=== PATIENT | male | born 1950 | race Caucasian/White ===

== ENCOUNTER 2017-09-27 07:29 | Day surgery (SDC) | payer OTHER ==
[2017-09-27] MEDS ORDERED: Ringers Lactate 1,000 ML IV ONE (08:00)
[2017-09-27] MEDS ORDERED: LIDOCAINE 1% MPF 5 ML VIAL ONE (10:05)
[2017-09-27] MEDS ORDERED: PROPOFOL 200 MG/20 ML VIAL IV ONE (10:05)
--- NOTE | 2017-09-27 10:59 | ENDO RPT ---
[address], [address] COLONOSCOPY PROCEDURE REPORT EXAM DATE: 09/27/2017 PATIENT NAME: Manuel Combs MR #: [id number] BIRTHDATE: 1950 ATTENDING: Manuel Barrientos Dr STATUS: outpatient MANAGER ADULT: Ca Logan RN and Hellen Brenner INDICATIONS: The patient is a 67 yr old Male here for a colonoscopy due to colon cancer screening PROCEDURE PERFORMED: Colonoscopy with snare polypectomy MEDICATIONS: Per Anesthesia. ESTIMATED BLOOD LOSS: None CONSENT: The patient understands the risks and benefits of the procedure and understands that these risks include, but are not limited to: sedation, allergic reaction, infection, perforation and/or bleeding. Alternative means of evaluation and treatment include, among others: physical exam, x-rays, and/or surgical intervention. The patient elects to proceed with this endoscopic procedure. DESCRIPTION OF PROCEDURE: During intra-op preparation period all mechanical medical equipment was checked for proper function. Hand hygiene and appropriate measures for infection prevention was taken. Procedure, possible complications, alternatives including, but not limited to possibility of bleeding, perforation, tear, infection, sepsis, need for surgery, need for blood transfusion, were explained to the patient. After the risks, benefits and alternatives of the procedure were thoroughly explained, Informed consent was verified, confirmed and timeout was successfully executed by the treatment team. The patient was placed in the left lateral position. A digital rectal exam was performed and revealed no abnormalities of the rectum. After appropriate level of anesthesia, the scope was passed. The EC-[id number] ([id number]) endoscope was introduced through the anus and advanced to the terminal ileum which was intubated for a short distance. The quality of the prep was good. The instrument was then slowly withdrawn as the colon was fully examined. Scope withdrawal time was 12 minutes. COLON FINDINGS: A sessile polyp measuring 7 mm in size was found in the ascending colon. A polypectomy was performed using snare cautery. Five pedunculated polyps measuring 1-2 cm in size were found in the descending colon. A pedunculated polyp measuring 2 cm in size was found in the sigmoid colon. A sessile polyp measuring 7 mm in size was found in the sigmoid colon. Two sessile polyps measuring 6-7 mm in size were found in the rectum. A polypectomy was performed using snare cautery. Enlarged / protruding appendix. Small internal hemorrhoids were found. Retroflexed views revealed small hemorrhoids. The scope was then completely withdrawn from the patient and the procedure terminated. ADVERSE EVENTS: There were no complications. IMPRESSIONS: 1. 7 mm sessile polyp in the ascending colon; polypectomy was performed using snare cautery 2. Five pedunculated polyps measuring 1-2 cm in size in the descending colon 3. 2.5 cm pedunculated polyp in the sigmoid colon 4. 7 mm sessile polyp in the sigmoid colon cautery 6. Enlarged / protruding appendix 7. Small internal hemorrhoids 8. Intubation to terminal ileum RECOMMENDATIONS: 1. await biopsy results 2. avoid NSAIDS for [address] abdomen/pelvis/chest 4. check CEA level Manuel Barrientos Dr eSigned: Manuel Barrientos Dr 09/27/2017 10:59 AM cc: Dylon Martinez and Maury Villafuerte CPT CODES: ICD9 CODES: 1. 211.3 Benign neoplasm of colon 2. 569.0 Anal and rectal polyp PATIENT NAME: Lauryn Manuel BarnardTeresa MR#: [id number]
[2017-09-27 11:08] VITALS: TEMP 96.5
[2017-09-27 11:11] VITALS: O2SAT 100
[2017-09-27 11:12] VITALS: BP 100/84
[2017-09-27 11:43] LABS: Carcinoembryonic Antigen 3.2 ng/mL (0-5.0)
--- NOTE | 2017-09-27 13:51 | RAD REPORT ---
EXAM DESCRIPTION: CT - Chest Abdomen Pelvis W Cont - 09/27/2017 1:08 pm CLINICAL HISTORY: Abnormal colonoscopy, multiple large polyps removed COMPARISON: None. TECHNIQUE: Following dynamic enhancement using 100 milliliters nonionic IV contrast, axial imaging o f the chest, abdomen and pelvis was performed. Biphasic technique was utilized through the abdomen. Oral contrast was administered. All CT scans are performed using dose optimization technique as appropriate and may include automated exposure control or mA/KV adjustment according to patient size. FINDINGS: In the lateral right lower lobe (image 44/89) there is a 4 millimeter noncalcified pulmona ry nodule. Lung francois are otherwise clear of mass or nodularity. No acute infiltrates seen. No pleur al effusion, pleural thickening or pneumothorax. No significant aortic or pulmonary arterial tree fin ding. Mediastinal and hilar regions show no mass or abnormal lymphadenopathy. No chest wall mass or a xillary lymphadenopathy. Thoracic spine bony degenerative changes are present. No pathologic process identifiable. Liver size is normal. No focal liver lesions. No splenomegaly or focal splenic finding. Body and tail of the pancreas are unremarkable. Along the right lateral margin of the uncinate -head junction of t he pancreas there is a 3.3 centimeter cystic or low-density mass. Two adjacent 13-15 millimeter lymph nodes are present. Patient has an air-filled 3.4 centimeter duodenal diverticulum. The pancreatic cy stic mass is not believed to be a fluid-filled diverticulum. No edema or stranding in the adjacent fa t. No biliary tree dilatation. Gallbladder is abnormal in appearance with thickened wall and areas of gallbladder wall edema. Gallstones can be occult. No free fluid seen. Symmetric renal function is seen with no mass or hydronephrosis. No adrenal abnormalities. No pyelone phritis or acute renal parenchymal process. A 4.8 centimeter cyst is present adjacent to the lateral margin of the left kidney. This is probably renal in origin. This is not regarded as a significant fi nding in and of itself. Multiple additional 12 mm or less exophytic left renal cysts are present. No gastric wall thickening or mass. No acute small bowel finding. Oral contrast has reached the dista l rectum. Rectal galan are more difficult to assess due to tortuosity. There is focal wall thickening near the rectosigmoid junction, possibly site of prior polypectomy. Focal nodularity near the descen ding sigmoid junction is possibly another site of polypectomy. Nodularity at the splenic flexure is a lso present. Prominent ileocecal valve noted. No free air, free fluid or focal inflammatory stranding. No acute or destructive bony process. Vascular calcifications are present with no acute vascular finding. IMPRESSION: Multiple areas of polyposis or nodularity are seen in the colon as detailed. Assessment by CT is limited due to incomplete distention. At the areas of suspected nodularity or polyposis there is no extension into the adjacent fatty tissu e. No abnormal abdominal or pelvic lymphadenopathy related to the colon. Approximately 3.3 centimeter cystic mass along the lateral margin of the pancreatic head -uncinate ju nction. Two small adjacent lymph nodes are present. Gallbladder is abnormal with wall thickening.Find ing is concerning for a primary pancreatic malignancy. Biliary tree malignancy cannot be excluded giv en the concurrent gallbladder abnormality. Single nonspecific noncalcified right lower lobe nodule 4 mm in size. No suspicious CT chest finding.
== END 2017-09-27 13:07 | disposition home or self-care (01) ==
LOC: ENDO 07:29
PROVIDERS: ATTEND Internal Medicine Gastroenterology
PROC: 0DBN8ZZ Excision of Sigmoid Colon, Via Natural or Artificial Opening Endoscopic (ICD-10-PCS; 2017-09-27)
PROC: 0DBP8ZX Excision of Rectum, Via Natural or Artificial Opening Endoscopic, Diagnostic (ICD-10-PCS; 2017-09-27)
PROC: 0DBM8ZZ Excision of Descending Colon, Via Natural or Artificial Opening Endoscopic (ICD-10-PCS; 2017-09-27)
PROC: 0DBK8ZX Excision of Ascending Colon, Via Natural or Artificial Opening Endoscopic, Diagnostic (ICD-10-PCS; principal; 2017-09-27 10:15)
DX: Z12.11 Encounter for screening for malignant neoplasm of colon (principal); I10 Essential (primary) hypertension; Z86.73 Personal history of transient ischemic attack (TIA), and cerebral infarction without residual deficits; F17.210 Nicotine dependence, cigarettes, uncomplicated; D12.2 Benign neoplasm of ascending colon; D12.8 Benign neoplasm of rectum; K64.8 Other hemorrhoids
CPT/HCPCS: 36415; 45385; 71260; 74177; 82378; 82565; 88305; Q9967

== ENCOUNTER 2017-12-08 16:43 | Inpatient (IN) | payer OTHER ==
--- NOTE | 2017-12-08 17:42 | RAD REPORT ---
EXAM DESCRIPTION: CT - Head Brain Wo Cont - 12/08/2017 5:28 pm CLINICAL HISTORY: Left hand numbness COMPARISON: None. TECHNIQUE: Computed axial tomography of the head was obtained. IV contrast was not requested. All CT scans are performed using dose optimization technique as appropriate and may include automated exposure control or mA/KV adjustment according to patient size. FINDINGS: An intracranial bleed is not seen . The ventricles are normal in caliber. No extra-axial fluid collection is noted. 5 centimeter low-density area within the left occipital lobe has the appearance of cystic encephaloma lacia likely secondary to an old infarct. A 3 centimeter low-density areas present within the right occipital lobe. Fluid within the sinuses/ mastoids is not seen. IMPRESSION: 3 centimeter low-density area within the right occipital lobe likely represents an infa rct. It may be acute/subacute. MRI is recommended
[2017-12-08 17:59] LABS: Absolute Lymphocytes (CBC) 1.2 K/uL (0.7-4.9); Absolute Monocytes 1.1 K/uL (0.1-1.3); Absolute Neutrophil 11.4 K/uL (1.8-8.0); Basophils % 0.5 % (0-1.3); Eosinophils % 0.9 % (0-4.4); Hematocrit 30.3 % (39.6-49.0); Lymphocytes % 8.4 % (15.3-44.8); MCH 29.8 pg (27.0-35.0); MCV 88.1 fL (80-100); MPV 7.3 fL (7.6-11.3); RBC Red Blood Cell Count 3.44 M/uL (4.33-5.43)
[2017-12-08 18:22] LABS: Protime INR 1.19
--- NOTE | 2017-12-08 18:34 | RAD REPORT ---
EXAM DESCRIPTION: Shy Single View12/08/2017 6:03 pm CLINICAL HISTORY: Chest pain COMPARISON: none FINDINGS: The lungs appear clear of acute infiltrate. The heart is normal size IMPRESSION: No acute abnormalities displayed
[2017-12-08] MEDS ORDERED: ASPIRIN 81 MG CHEWABLE TABLET ONE (18:54)
[2017-12-08 18:57] LABS: ALT/SGPT 14 U/L (12-78); AST/SGOT 15 U/L (15-37); Albumin 2.3 g/dL (3.4-5.0); Alkaline Phosphatase 67 U/L (45-117); BUN Blood Urea Nitrogen 17 mg/dL (7-18); Bicarbonate 31 mmol/L (21-32); Bilirubin Direct 0.1 mg/dL (0-0.2); Bilirubin Total 0.3 mg/dL (0.2-1.0); CKMB Creatine Kinase MB < 1.0 ng/mL (0.3-3.6); Creatine Phosphokinase 42 U/L (39-308); Glucose Level 111 mg/dL (74-106); Magnesium 2.3 mg/dL (1.8-2.4); NT PRO-BNP 106 pg/mL (<125); Protein, Total 6.6 g/dL (6.4-8.2); Sodium Level 143 mmol/L (136-145); Troponin (Emerg Dept Use Only) < 0.02 ng/mL (0.0-0.045)
[2017-12-08 18:58] LABS: Potassium 2.7 mmol/L (3.5-5.1)
[2017-12-08] MEDS ORDERED: KCL 20 MEQ/100 mL IVPB 20 MEQ/100 ML BAG IV ONE (19:05)
[2017-12-08] MEDS ORDERED: POTASSIUM 25 MEQ EFFERV TAB ONE (19:05)
[2017-12-08] MEDS ORDERED: NA CHLORIDE 0.9% 250 ML ONE (19:07)
--- NOTE | 2017-12-08 20:06 | EDPHYS ---
Physician Documentation [facility] Name: Manuel Combs Age: 67 yrs Sex: Male : 1950 Arrival Date: 12/08/2017 Time: 16:44 Bed 28 Private MD: Dylon Martinez ED Physician Jono Montelongo HPI: 12/08 17:30 This 67 yrs old Male presents to ER via EMS with complaints of Weakness. cp 17:30 The patient presents to the emergency department with weakness of the entire body, cp generalized weakness. 17:30 Onset: The symptoms/episode began/occurred gradually. cp 17:30 Context: numbness of left hand and arm started yesterday. Associated signs and cp symptoms: Pertinent negatives: altered mental status, chills, fever, headache, nausea, neck stiffness, syncope, weakness. Severity of symptoms: in the emergency department the symptoms are unchanged despite home interventions. Patient's baseline: Neuro: alert and fully oriented, Motor: right-sided weakness, Ambulation: walks with assist only, crutch, Speech: normal, The patient has a previous history of CVA. Current symptoms: numbness of left hand and left arm. Historical: - Allergies: 16:51 No Known Allergies; mg2 - Home Meds: 18:11 atorvastatin 40 mg oral tab 1 tab once daily [Active]; amlodipine 10 mg tab 1 tab once mg2 daily [Active]; pantoprazole 40 mg oral TbEC 1 tab once daily [Active]; gabapentin 300 mg oral cap 1 cap 3 times per day [Active]; losartan 100 mg oral tab 1 tab once daily [Active]; - PMHx: 16:51 GERD; Hypertension; Hyperlipidemia; neuropathy; stroke last 2016; mg2 - PSHx: 16:51 mass removal from the pancreas- november 25, 2017; mg2 - Immunization history:: Flu vaccine is not up to date. - Social history:: Smoking status: Patient uses tobacco products, smokes one pack cigarettes per day. Patient/guardian denies using alcohol, street drugs, IV drugs. - Ebola Screening: : No symptoms or risks identified at this time. ROS: 17:35 Constitutional: Negative for body aches, chills, fever, poor PO intake. cp 17:35 Eyes: Negative for injury, pain, redness, and discharge. cp 17:35 ENT: Negative for drainage from ear(s), ear pain, sore throat, difficulty swallowing, difficulty handling secretions. 17:35 Cardiovascular: Negative for chest pain, edema, palpitations. 17:35 Respiratory: Negative for cough, shortness of breath, wheezing. 17:35 Abdomen/GI: Negative for abdominal pain, nausea, vomiting, and diarrhea, black/tarry stool, rectal bleeding. 17:35 Back: Negative for pain at rest, pain with movement, radiated pain. 17:35 : Negative for urinary symptoms. 17:35 MS/extremity: Positive for paresthesias, of the left hand and left arm, Negative for injury or acute deformity, decreased range of motion. 17:35 Skin: Negative for cellulitis, rash. 17:35 Neuro: Positive for general weakness, Negative for altered mental status, dizziness, headache, syncope, near syncope, visual changes. 17:35 All other systems are negative. Exam: 17:10 ECG was reviewed by the Attending Physician. cp 17:40 Constitutional: The patient appears in no acute distress, alert, awake, cp non-diaphoretic, non-toxic, well developed, well nourished. 17:40 Head/Face: Normocephalic, atraumatic. cp 17:40 ENT: Nares patent. No nasal discharge, no septal abnormalities noted. Tympanic membranes are normal and external auditory canals are clear. Oropharynx with no redness, swelling, or masses, exudates, or evidence of obstruction, uvula midline. Mucous membranes moist. Neck: Trachea midline, no thyromegaly or masses palpated, and no cervical lymphadenopathy. Supple, full range of motion without nuchal rigidity, or vertebral point tenderness. No Meningismus. Chest/axilla: Normal chest wall appearance and motion. Nontender with no deformity. No lesions are appreciated. 17:40 Eyes: Periorbital structures: appear normal, Pupils: equal, round, and reactive to light and accomodation, Extraocular movements: intact throughout, Conjunctiva: normal, no exudate, no injection, Sclera: no appreciated abnormality, Lids and lashes: appear normal, bilaterally. 17:40 Cardiovascular: Rate: normal, Rhythm: regular, Pulses: Pulses are 2+ in right radial artery and left radial artery. Edema: is not appreciated, JVD: is not appreciated. 17:40 Respiratory: the patient does not display signs of respiratory distress, Respirations: normal, no use of accessory muscles, no retractions, no splinting, no tachypnea, labored breathing, is not present. 17:40 Abdomen/GI: Inspection: scar(s), surgical scar appears w/o erythema or discharge, no signs of cellulitis noted, Bowel sounds: active, all quadrants, Palpation: soft, in all quadrants, nontender, in all quadrants. 17:40 Back: pain, is absent, ROM is normal. 17:40 Neuro: Orientation: to person, place \T\ time. Mentation: lucid, able to follow commands, Cerebellar function: Romberg testing is negative, normal finger to nose testing, Motor: moves all fours, general weakness w/o focal deficits, Sensation: tingling, that is mild, of the left hand and left arm. Vital Signs: 16:51 BP 146 / 71; Pulse 91; Resp 18; Temp 98.5; Pulse Ox 98% on R/A; Weight 83.46 kg; Height mg2 6 ft. 1 in. (185.42 cm); Pain 0/10; 18:07 BP 122 / 97; Pulse 78; Resp 18; Pulse Ox 95% on R/A; Pain 0/10; mg2 18:24 BP 146 / 93 Supine; mg2 18:24 BP 149 / 62 Sitting; mg2 18:24 BP 128 / 63 Standing; mg2 19:46 BP 148 / 55; Pulse 91; Resp 18; Pulse Ox 100% on R/A; Pain 0/10; mg2 22:30 BP 136 / 80; Pulse 90; Resp 18; Pulse Ox 100% on R/A; Pain 0/10; mg2 16:51 Body Mass Index 24.28 (83.46 kg, 185.42 cm) mg2 NIH Stroke Scale Scores: 17:40 NIHSS Score: 1 cp Tresa Coma Score: 17:40 Eye Response: spontaneous(4). Verbal Response: oriented(5). Motor Response: obeys cp commands(6). Total: 15. MDM: 17:02 Patient medically screened. cp 17:20 ED course: Patient is not candidate for tpa due to onset of symptoms occurring cp yesterday. 19:38 Data reviewed: vital signs, nurses notes, lab test result(s), EKG, radiologic studies, cp CT scan. 19:38 Test interpretation: by ED physician or midlevel provider: ECG. Counseling: I had a cp detailed discussion with the patient and/or guardian regarding: the historical points, exam findings, and any diagnostic results supporting the discharge/admit diagnosis, lab results, radiology results, the need for further work-up and treatment in the hospital. 19:42 Physician consultation: Christi Monge MD was contacted at 19:42, regarding admission, cp to the medical/surgical unit. patient's condition, and will see patient in ED, shortly. 12/08 17:11 Order name: Basic Metabolic Panel; Complete Time: 19:19 cp 12/08 19:20 Interpretation: Normal except: K 2.7; GLUC 111; GFR 84. cp 12/08 17:11 Order name: CBC with Diff; Complete Time: 18:20 cp 12/08 18:20 Interpretation: Normal except: WBC 13.8; RBC 3.44; HGB 10.3; HCT 30.3; PLT 585; RDW cp 15.8; MPV 7.3; HALEY% 82.2; LYM% 8.4; NEUT A 11.4. 12/08 17:11 Order name: Ckmb; Complete Time: 19:19 cp 12/08 17:11 Order name: CPK; Complete Time: 19:19 cp 12/08 17:11 Order name: LFT's; Complete Time: 19:19 cp 12/08 19:20 Interpretation: Normal except: ALB 2.3; GLOB 4.3; A/G 0.5. cp 12/08 17:11 Order name: Magnesium; Complete Time: 19:19 cp 12/08 17:11 Order name: NT PRO-BNP; Complete Time: 19:19 cp 12/08 17:11 Order name: PT-INR; Complete Time: 19:19 cp 12/08 17:11 Order name: Ptt, Activated; Complete Time: 19:19 cp 12/08 17:11 Order name: Troponin (emerg Dept Use Only); Complete Time: 19:19 cp 12/08 17:11 Order name: XRAY Chest (1 view); Complete Time: 19:19 cp 12/08 17:11 Order name: Blood Culture Adult (2) cp 12/08 19:22 Order name: Urine Microscopic Only; Complete Time: 22:30 cp 12/08 22:30 Interpretation: Normal except: AMORPH 3+. cp 12/08 19:59 Order name: Urine Dipstick--Ancillary (enter results); Complete Time: 22:30 rg2 12/08 22:31 Interpretation: Reviewed. cp 12/08 17:11 Order name: Orthostatics; Complete Time: 18:24 cp 12/08 17:11 Order name: EKG; Complete Time: 17:12 cp 12/08 17:11 Order name: Cardiac monitoring; Complete Time: 17:47 cp 12/08 17:11 Order name: EKG - Nurse/Tech; Complete Time: 17:47 cp 12/08 17:11 Order name: IV Saline Lock; Complete Time: 17:47 cp 12/08 17:11 Order name: Labs collected and sent; Complete Time: 17:47 cp 12/08 17:11 Order name: O2 Per Protocol; Complete Time: 17:47 cp 12/08 17:11 Order name: O2 Sat Monitoring; Complete Time: 17:47 cp 12/08 17:11 Order name: Urine Dipstick-Ancillary (obtain specimen); Complete Time: 19:46 cp 12/08 17:11 Order name: CT Head Brain wo Cont; Complete Time: 18:20 cp 12/08 19:22 Order name: Cath; Complete Time: 19:46 cp EC:10 Rate is 91 beats/min. Rhythm is regular. LA interval is normal. QRS interval is normal. cp QT interval is normal. Interpreted by me. Reviewed by me. Administered Medications: 18:54 Drug: Aspirin Chewable Tablet 81 mg Route: PO; mg2 22:00 Follow up: Response: No adverse reaction mg2 22:01 Follow up: Response: No adverse reaction mg2 19:08 Drug: Potassium Effervescent Tablet 50 mEq Route: PO; mg2 21:59 Follow up: Response: No adverse reaction mg2 19:09 Drug: Potassium Chloride 20 mEq Route: IV; Rate: calculated rate; Site: right mg2 antecubital; 22:00 Follow up: Response: No adverse reaction; IV Status: Completed infusion mg2 20:26 Drug: foLIC Acid 1 mg Route: IVPB; Site: right antecubital; mg2 21:59 Follow up: Response: No adverse reaction; IV Status: Completed infusion mg2 Disposition: 12/09 07:30 Co-signature as Attending Physician, Jono Montelongo MD I agree with the assessment and kdr plan of care. Disposition: 12/08/17 20:05 Hospitalization ordered by Christi Monge for Observation. Preliminary diagnosis are Cerebral infarction, Paresthesia of skin, Weakness - General, Hypokalemia. - Bed requested for Telemetry/MedSurg (observation). - Status is Observation. mg2 - Condition is Stable. - Problem is new. - Symptoms have improved. UTI on Admission? No NIH Stroke Scale - NIH Stroke Score Date: 12/08/2017 Time: 17:40 Total Score = 1 1a. Level of Consciousness (LOC) - 0(Alert) 1b. Level of Consciousness (LOC) (Year \T\ Age) - 0(Both) 1c. LOC Commands (Open \T\ Closes Eyes/Meat Cutting Block Repairer) - 0(Both) 2. Best Gaze (Lateral Gaze Paresis) - 0(Normal) 3. Visual Field Loss - 0(No visual loss) 4. Facial Palsy - 0(Normal) 5a. Left Arm: Motor (10-second hold) - 0(No drift) 5b. Right Arm: Motor (10-second hold) - 0(No drift) 6a. Left Leg: Motor (5-second hold - always test supine) - 0(No drift) 6b. Right Leg: Motor (5-second hold - always test supine) - 0(No drift) 7. Limb Ataxia (finger/nose \T\ heel/bustillo - test with eyes open) - 0(Absent) 8. Sensory Loss (pinprick arms/legs/face) - 1(Mild to moderate loss) 9. Best Language: Aphasia (description/naming/reading) - 0(No aphasia) 10. Dysarthria (speech clarity - read or repeat words) - 0(Normal) 11. Extinction and Inattention (visual/tactile/auditory/spatial/personal) - 0(No abnormality) Initials: cp Signatures: Dispatcher [employer] Kim Galvan RN RN kl Rittger, Kevin, MD MD kdr Page, Corey, PA PA cp Agusto Thompson RN RN mg2 Corrections: (The following items were deleted from the chart) 12/08 20:06 20:05 Hospitalization Ordered by Christi Monge MD for Observation. Preliminary cp diagnosis is Cerebral infarction; Paresthesia of skin. Bed requested for Telemetry/MedSurg (observation). Status is Observation. Condition is Stable. Problem is new. Symptoms have improved. UTI on Admission? No. cp 20:23 20:06 12/08/2017 20:05 Hospitalization Ordered by Christi Monge MD for cp Observation. Preliminary diagnosis is Cerebral infarction; Paresthesia of skin; Weakness - General. Bed requested for Telemetry/MedSurg (observation). Status is Observation. Condition is Stable. Problem is new. Symptoms have improved. UTI on Admission? No. cp 21:31 20:23 12/08/2017 20:05 Hospitalization Ordered by Christi Monge MD for kl Observation. Preliminary diagnosis is Cerebral infarction; Paresthesia of skin; Weakness - General; Hypokalemia. Bed requested for Telemetry/MedSurg (observation). Status is Observation. Condition is Stable. Problem is new. Symptoms have improved. UTI on Admission? No. cp 21:34 21:31 12/08/2017 20:05 Hospitalization Ordered by Christi Monge MD for kl Observation. Preliminary diagnosis is Cerebral infarction; Paresthesia of skin; Weakness - General; Hypokalemia. Bed requested for Telemetry/MedSurg (observation). Status is Observation. Condition is Stable. Problem is new. Symptoms have improved. UTI on Admission? No. kl 22:33 21:34 12/08/2017 20:05 Hospitalization Ordered by Christi Monge MD for [facility] Observation. Preliminary diagnosis is Cerebral infarction; Paresthesia of skin; Weakness - General; Hypokalemia. Bed requested for Telemetry/MedSurg (observation). Status is Observation. Condition is Stable. Problem is new. Symptoms have improved. UTI on Admission? No.
--- NOTE | 2017-12-08 20:06 | ER ---
Nurse's Notes [facility] Name: Manuel Combs Age: 67 yrs Sex: Male : 1950 Arrival Date: 12/08/2017 Time: 16:44 Bed 28 Private MD: Dylon Martinez Diagnosis: Cerebral infarction;Paresthesia of skin;Weakness-General;Hypokalemia Presentation: 12/08 16:46 Presenting complaint: EMS states: patient has been having general body weakness since mg2 yesterday, numbness on his left hand \T\ 0500 yesterday morning. BGL- 156, Afib on EKG Strip, and had his pancreatic mass removed last November 25, 2017. no facial droop or slurred speech noted. Transition of care: patient was not received from another setting of care. Onset of symptoms was December 07, 2017. Risk Assessment: Do you want to hurt yourself or someone else? Patient reports no desire to harm self or others. Initial Sepsis Screen: Does the patient have a suspected source of infection? No. Patient's initial sepsis screen is negative. Care prior to arrival: IV fluid. 16:46 Method Of Arrival: EMS mg2 16:46 Acuity: KARSON 2 mg2 18:08 Initial Sepsis Screen: Does the patient meet any 2 criteria? No. Patient's initial mg2 sepsis screen is negative. Historical: - Allergies: 16:51 No Known Allergies; mg2 - Home Meds: 18:11 atorvastatin 40 mg oral tab 1 tab once daily [Active]; amlodipine 10 mg tab 1 tab once mg2 daily [Active]; pantoprazole 40 mg oral TbEC 1 tab once daily [Active]; gabapentin 300 mg oral cap 1 cap 3 times per day [Active]; losartan 100 mg oral tab 1 tab once daily [Active]; - PMHx: 16:51 GERD; Hypertension; Hyperlipidemia; neuropathy; stroke last 2016; mg2 - PSHx: 16:51 mass removal from the pancreas- november 25, 2017; mg2 - Immunization history:: Flu vaccine is not up to date. - Social history:: Smoking status: Patient uses tobacco products, smokes one pack cigarettes per day. Patient/guardian denies using alcohol, street drugs, IV drugs. - Ebola Screening: : No symptoms or risks identified at this time. Screenin:47 Abuse screen: Denies threats or abuse. Denies injuries from another. Nutritional mg2 screening: No deficits noted. Tuberculosis screening: No symptoms or risk factors identified. Fall Risk IV access (20 points). Ambulatory Aid- Crutches/Cane/Walker (15 pts). Gait- Weak (10 pts.). Assessment: 17:48 General: Appears in no apparent distress. comfortable, Behavior is calm, cooperative. mg2 Pain: Denies pain. Neuro: Level of Consciousness is awake, alert, obeys commands, Oriented to person, place, time, situation. Cardiovascular: Capillary refill < 3 seconds Patient's skin is warm and dry. Respiratory: Airway is patent Respiratory effort is even, unlabored, Respiratory pattern is regular, symmetrical. GI: No signs and/or symptoms were reported involving the gastrointestinal system. : No signs and/or symptoms were reported regarding the genitourinary system. EENT: No signs and/or symptoms were reported regarding the EENT system. Derm: Skin is pink, warm \T\ dry. normal. Musculoskeletal: Circulation, motion, and sensation intact. 18:08 Reassessment: Patient appears in no apparent distress at this time. Patient and/or mg2 family updated on plan of care and expected duration. Pain level reassessed. Patient is alert, oriented x 3, equal unlabored respirations, skin warm/dry/pink. 19:30 Reassessment: Patient appears in no apparent distress at this time. Patient and/or mg2 family updated on plan of care and expected duration. Pain level reassessed. Patient is alert, oriented x 3, equal unlabored respirations, skin warm/dry/pink. Vital Signs: 16:51 BP 146 / 71; Pulse 91; Resp 18; Temp 98.5; Pulse Ox 98% on R/A; Weight 83.46 kg; Height mg2 6 ft. 1 in. (185.42 cm); Pain 0/10; 18:07 BP 122 / 97; Pulse 78; Resp 18; Pulse Ox 95% on R/A; Pain 0/10; mg2 18:24 BP 146 / 93 Supine; mg2 18:24 BP 149 / 62 Sitting; mg2 18:24 BP 128 / 63 Standing; mg2 19:46 BP 148 / 55; Pulse 91; Resp 18; Pulse Ox 100% on R/A; Pain 0/10; mg2 22:30 BP 136 / 80; Pulse 90; Resp 18; Pulse Ox 100% on R/A; Pain 0/10; mg2 16:51 Body Mass Index 24.28 (83.46 kg, 185.42 cm) mg2 Tresa Coma Score: 17:40 Eye Response: spontaneous(4). Verbal Response: oriented(5). Motor Response: obeys cp commands(6). Total: 15. NIH Stroke Scale Scores: 17:40 NIHSS Score: 1 cp ED Course: 16:44 Patient arrived in ED. rg4 16:44 Dylon Martinez MD is Private Physician. rg4 16:46 Agusto Thompson, DARCI is Primary Nurse. mg2 16:49 Triage completed. mg2 16:52 Arm band placed on. mg2 17:02 Armand Felipe PA is PHCP. cp 17:02 Jono Montelongo MD is Attending Physician. cp 17:[address] vr 17:20 EKG done, by photo lab technician. dt2 17:28 CT Head Brain wo Cont In Process Unspecified. EDMS 17:49 No provider procedures requiring assistance completed. Maintain EMS IV. Dressing mg2 intact. Good blood return noted. Site clean \T\ dry. Gauge \T\ site: 20 \T\ RAC. 17:59 X-ray completed. Portable x-ray completed in exam room. jr1 18:04 XRAY Chest (1 view) In Process Unspecified. EDMS 18:08 Patient has correct armband on for positive identification. Bed in low position. Call mg2 light in reach. Side rails up X 1. Pulse ox on. NIBP on. Door closed. Warm blanket given. 20:04 Christi Monge MD is Hospitalizing Provider. cp 22:31 Patient admitted, IV remains in place. mg2 Administered Medications: 18:54 Drug: Aspirin Chewable Tablet 81 mg Route: PO; mg2 22:00 Follow up: Response: No adverse reaction mg2 22:01 Follow up: Response: No adverse reaction mg2 19:08 Drug: Potassium Effervescent Tablet 50 mEq Route: PO; mg2 21:59 Follow up: Response: No adverse reaction mg2 19:09 Drug: Potassium Chloride 20 mEq Route: IV; Rate: calculated rate; Site: right mg2 antecubital; 22:00 Follow up: Response: No adverse reaction; IV Status: Completed infusion mg2 20:26 Drug: foLIC Acid 1 mg Route: IVPB; Site: right antecubital; mg2 21:59 Follow up: Response: No adverse reaction; IV Status: Completed infusion mg2 Outcome: 20:05 Decision to Hospitalize by Provider. cp 22:32 Admitted to Med/surg accompanied by tech, via wheelchair, room 230, with chart, Report mg2 called to DARCI Oliver 22:32 Condition: stable 22:32 Instructed on the need for admit, Demonstrated understanding of instructions. 22:33 Patient left the ED. mg2 NIH Stroke Scale - NIH Stroke Score Date: 12/08/2017 Time: 17:40 Total Score = 1 1a. Level of Consciousness (LOC) - 0(Alert) 1b. Level of Consciousness (LOC) (Year \T\ Age) - 0(Both) 1c. LOC Commands (Open \T\ Closes Eyes/Fermenting Cellar Dropper) - 0(Both) 2. Best Gaze (Lateral Gaze Paresis) - 0(Normal) 3. Visual Field Loss - 0(No visual loss) 4. Facial Palsy - 0(Normal) 5a. Left Arm: Motor (10-second hold) - 0(No drift) 5b. Right Arm: Motor (10-second hold) - 0(No drift) 6a. Left Leg: Motor (5-second hold - always test supine) - 0(No drift) 6b. Right Leg: Motor (5-second hold - always test supine) - 0(No drift) 7. Limb Ataxia (finger/nose \T\ heel/bustillo - test with eyes open) - 0(Absent) 8. Sensory Loss (pinprick arms/legs/face) - 1(Mild to moderate loss) 9. Best Language: Aphasia (description/naming/reading) - 0(No aphasia) 10. Dysarthria (speech clarity - read or repeat words) - 0(Normal) 11. Extinction and Inattention (visual/tactile/auditory/spatial/personal) - 0(No abnormality) Initials: cp Signatures: Dispatcher [employer] EDMS Lu Foster Victoria vr Page, Corey, PA PA cp Garcia, Rubi rg4 Agusto Thompson, DARCI RN mg2 Chloe Rodriguez2 Corrections: (The following items were deleted from the chart) 16:53 16:46 Presenting complaint: EMS states: patient has been having general body mg2 weakness since yesterday, numbness on his left hand \T\ 0500 yesterday morning. mg2 18:09 18:07 Pulse 78bpm; Resp 18bpm; Pulse Ox 95% RA; Pain 0/10; mg2 mg2
[2017-12-08] MEDS ORDERED: FOLIC ACID 5 MG/ML VIAL ONE (20:25)
[2017-12-08] MEDS ORDERED: NA CHLORIDE 0.9% 50 ML IV ONE (20:26)
--- NOTE | 2017-12-08 21:04 | P.HP ---
Certification for Inpatient Patient admitted to: Observation With expected LOS: <2 Midnights Practitioner: I am a practitioner with admitting privileges, knowledge of patient current condition, hospital course, and medical plan of care. Services: Services provided to patient in accordance with Admission requirements found in Title 42 Section 412.3 of the Code of Federal Regulations Patient History Date of Service: 12/08/17 Reason for admission: Acute/subacute CVA History of Present Illness: Mr Combs is a 67-year-old male with history of hypertension, dyslipidemia, previous CVA in 2017, who in 11/25/17 had a pancreatic mass removed, according to his it was benign. Yesterday morning about 5:00 a.m., he started feeling numbness in his left hand. Prior done the the numbness was getting worse and affecting his whole arm. He denied any numbness or tingling in his left leg or face. He also has been feeling more weak since had surgery last week. CT of the head was remarkable for 3 centimeter low-density area within the right occipital lobe representing an acute/subacute ischemic stroke. He also has a 5 cm area of encephalomalacia on the left occipital lobe representing on ald stroke. At my encounter, he was on non-distress, alert and oriented x3. Allergies No Known Allergies Allergy (Verified 09/27/17 08:46) Home medications list reviewed: Yes Home Medications: Amlodipine [Norvasc*] 10 mg PO DAILY 09/27/17 Apixaban [Eliquis] 5 mg PO DAILY 09/27/17 Aspirin [Aspir-Low] 81 mg PO DAILY 09/27/17 Atorvastatin Calcium [Lipitor] 40 mg PO DAILY 09/27/17 Cholecalciferol (Vitamin D3) [Decara] 50,000 units PO DAILY 09/27/17 Gabapentin [Gralise] 300 mg PO DAILY 09/27/17 Losartan Potassium 100 mg PO DAILY 09/27/17 Meclizine HCl 25 mg PO DAILY 09/27/17 Pantoprazole [Protonix Tab*] 40 mg PO DAILY 09/27/17 - Past Medical/Surgical History -: Hypertension -: CVA -: Dyslipidemia -: Neuropathy -: GERD -: Pancreatic mass removed - Family History Family History: Reviewed- Non-Contributory - Social History Smoking Status: Current every day smoker Counseled patient to stop smoking for: less than 10 minutes Smoking therapy provided: Yes Patient receptive to therapy: Yes Alcohol use: No CD- Drugs: No Place of Residence: Home Review of Systems 10-point ROS is otherwise unremarkable Physical Examination - Physical Exam General: Alert, In no apparent distress HEENT: Atraumatic, PERRLA, Mucous membr. moist/pink, EOMI, Sclerae nonicteric Neck: Supple, 2+ carotid pulse no bruit, No LAD, Without JVD or thyroid abnormality Respiratory: Clear to auscultation bilaterally, Normal air movement Cardiovascular: Regular rate/rhythm, Normal S1 S2 Gastrointestinal: Normal bowel sounds, No tenderness, Other (Stitches and drainage in place) Musculoskeletal: No tenderness Integumentary: No rashes Neurological: Normal speech, Normal tone, Normal affect, Abnormal strength ( Left arm 4/5 rest of the extremities 5/5) Lymphatics: No axilla or inguinal lymphadenopathy - Studies Laboratory Data (last 24 hrs) 12/08/17 17:40: PT 14.1 H, INR 1.19, APTT 28.1 12/08/17 17:40: WBC 13.8 H, Hgb 10.3 L, Hct 30.3 L, Plt Count 585 H 12/08/17 17:40: Sodium 143, Potassium 2.7 L*, BUN 17, Creatinine 0.90, Glucose 111 H, Magnesium 2.3, Total Bilirubin 0.3, AST 15, ALT 14, Alkaline Phosphatase 67 Assessment and Plan - Problems (Diagnosis) (1) Ischemic stroke Current Visit: Yes Status: Acute (2) Hypertension Current Visit: Yes Status: Acute Qualifiers: Hypertension type: essential hypertension Qualified Code(s): I10 - Essential (primary) hypertension (3) Dyslipidemia Current Visit: Yes Status: Acute (4) Pancreatic mass Current Visit: Yes Status: Acute - Plan The patient will be admitted to the hospital due to acute/subacute stroke. Will order a brain MRI, echo, carotid Doppler. Will start daily aspirin, statins consult physical therapy, consult neurologist. EKG is pending. - Advance Directives Does patient have a Living Will: No Does patient have a Durable POA for Healthcare: No - Code Status/Comfort Care Code Status Assessed: Yes Code Status: Full Code
[2017-12-08 21:34] LABS: Urine Blood NEGATIVE (NEG); Urine Glucose NEGATIVE (NEG); Urine Protein NEGATIVE (NEG)
[2017-12-08 22:19] LABS: Urine Amorphous Sediment 3+ /HPF (NONE SEEN); Urine Bacteria <20 /HPF (NONE SEEN); Urine Culture Reflex Order NOT NEEDED; Urine RBC <5 /HPF (NONE SEEN)
[2017-12-08] MEDS ORDERED: ALBUTEROL 2.5 MG/3 ML NEB SOL NEB PRN (23:01)
[2017-12-08] MEDS ORDERED: ACETAMINOPHEN 500 MG TAB PO PRN (23:01)
[2017-12-08] MEDS ORDERED: ONDANSETRON 4 MG/2 ML VIAL IV PRN (23:01)
[2017-12-08] MEDS ORDERED: NICOTINE 21 MG/PAT TD PRN (23:01)
[2017-12-08] MEDS ORDERED: ATORVASTATIN 20 MG TAB PO SCH (23:01)
[2017-12-08] MEDS ORDERED: IPRATROPIUM BROM 0.5MG/2.5ML NEB PRN (23:01)
[2017-12-08 23:28] VITALS: BMI 22.4
[2017-12-09 01:48] VITALS: O2SAT 98
[2017-12-09] MEDS ORDERED: POTASSIUM 25 MEQ EFFERV TAB PO ONE (01:50)
[2017-12-09 05:37] LABS: Absolute Lymphocytes (CBC) 1.2 K/uL (0.7-4.9); Absolute Monocytes 0.9 K/uL (0.1-1.3); Absolute Neutrophil 9.5 K/uL (1.8-8.0); Eosinophils % 1.2 % (0-4.4); Hematocrit 28.3 % (39.6-49.0); MCH 30.3 pg (27.0-35.0); MCV 87.7 fL (80-100); MPV 7.5 fL (7.6-11.3); Monocytes % 7.6 % (3.3-12.3); RBC Red Blood Cell Count 3.23 M/uL (4.33-5.43)
[2017-12-09 05:55] LABS: BUN Blood Urea Nitrogen 14 mg/dL (7-18); Bicarbonate 31 mmol/L (21-32); Glucose Level 107 mg/dL (74-106); HDL Cholesterol 31 mg/dL (40-60); LDL Cholesterol, Calculated 45 (<130); Potassium 3.3 mmol/L (3.5-5.1); Sodium Level 144 mmol/L (136-145)
--- NOTE | 2017-12-09 07:35 | EKG ---
Test Date: 2017-12-08 Test Time: 17:00:21 Greaser And Oiler: ALFREDA MEASUREMENT RESULTS: Intervals: Rate: 91 LA: 182 QRSD: 84 QT: 324 QTc: 398 [place]: P: 89 LA: 182 QRS: 83 T: 118 INTERPRETIVE STATEMENTS: Sinus rhythm with premature supraventricular complexes ST & T wave abnormality, consider inferolateral ischemia Abnormal ECG No previous ECG available for comparison Electronically Signed On 12-09-17 07:33:58 CDT by Tano Hollingsworth
[2017-12-09] MEDS ORDERED: PNEUMOCOCCAL VACCINE 0.5 ML IMVAC ONE (08:00)
[2017-12-09] MEDS: KCL 20 MEQ/100 mL IVPB 20 MEQ/100 ML BAG IV SCH ×2 (09:00→12:17)
[2017-12-09] MEDS ORDERED: ENOXAPARIN 40 MG/0.4 ML SQ SCH (09:00)
[2017-12-09] MEDS ORDERED: ASPIRIN EC 81 MG TAB PO SCH (09:00)
--- NOTE | 2017-12-09 09:13 | RAD REPORT ---
EXAM DESCRIPTION: MRI - Brain W/Wo Cont - 12/09/2017 8:31 am CLINICAL HISTORY: Left hand numbness/CVA COMPARISON: Head CT 12/08/2017 TECHNIQUE: Axial, sagittal, and coronal magnetic resonance images of the brain were obtained. 20 cc MultiHance administered intravenously. FINDINGS: Diffusion-weighted/ADC mapping demonstrates 4 centimeter area of abnormal signal within the right par ietal lobe. Additional tiny areas of abnormal signal are present within the posterior right frontal a nd right parietal lobe. 2 centimeter area of abnormal signal is present within the right occipital pa rietal junction. Mild enhancement of these areas is present. Cystic encephalomalacia is present within the left occipital lobe secondary to an old infarction. The ventricles are normal caliber. An extra-axial fluid collection is not noted The sinuses and mastoids are clear. IMPRESSION: Abnormal signal within the right parietal lobe, right occipital parietal junction with a dditional tiny areas within the posterior right frontal lobe and right parietal lobes compatible with acute infarction. This likely is sequela of severe stenosis of the right carotid bulb. The exam was discussed with Dr. Reed 9 a.m. 12/09/2017
--- NOTE | 2017-12-09 09:21 | RAD REPORT ---
EXAM DESCRIPTION: MRI - MRA Neck W/Wo Cont - 12/09/2017 8:31 am CLINICAL HISTORY: Left hand numbness/CVA COMPARISON: None. TECHNIQUE: Magnetic resonance angiogram of the neck was performed. 19 cc Magnevist was administered intravenously. 3D MIP reconstruction was performed FINDINGS: Plaque is present within the right carotid bulb resulting in an approximately 95% stenosis Mild to moderate plaque is present within the left carotid bulb. A high-grade stenosis involves the l eft external carotid artery. The left vertebral artery is dominant. No significant abnormality of vertebral arteries is seen. IMPRESSION: Approximately 95% stenosis of the right carotid bulb
--- NOTE | 2017-12-09 09:22 | RAD REPORT ---
EXAM DESCRIPTION: USCarotid Artery Bilateral12/09/2017 8:46 am CLINICAL HISTORY: Left hand numbness/CVA COMPARISON: None FINDINGS: The velocity of the right internal carotid artery equals 514 cm/sec. The right ICA/CCA rat io 4 The velocity of the left internal carotid artery equals 138 cm/sec. The left ICA/CCA ratio is 1.2 Marked plaque is present within the right carotid bulb. Mild to moderate plaque is present within the left carotid bulb. Marked plaque is present within the left external carotid artery The vertebral arteries demonstrate antegrade flow IMPRESSION: Marked plaque within the right carotid bulb resulting in an approximately 95% stenosis
--- NOTE | 2017-12-09 09:24 | RAD REPORT ---
EXAM DESCRIPTION: MRI - MRA Head Wo Cont - 12/09/2017 8:30 am CLINICAL HISTORY: Left hand numbness/CVA COMPARISON: None. TECHNIQUE: Magnetic resonance angiogram of the head was performed. 3D MIP reconstruction was performed FINDINGS: A short segment moderate stenosis involves the proximal right middle cerebral artery The remainder of the visualized anterior cerebral, middle cerebral, posterior cerebral, basilar and d istal internal carotid arteries do not demonstrate a significant stenosis. An aneurysm is not seen IMPRESSION: Moderate short-segment stenosis of the right middle cerebral artery
[2017-12-09] MEDS ORDERED: NA CHLORIDE 0.9% 250 ML ONE (10:05)
--- NOTE | 2017-12-09 13:59 | RAD REPORT ---
EXAM DESCRIPTION: CT - Abdomen Pelvis Wo Contrast - 12/09/2017 1:28 pm CLINICAL HISTORY: Abdominal pain status post recent abdominal surgery COMPARISON: None TECHNIQUE: Computed axial tomography of the abdomen and pelvis was obtained. IV and oral contrast we re not requested. All CT scans are performed using dose optimization technique as appropriate and may include automated exposure control or mA/KV adjustment according to patient size. FINDINGS: The evaluation of solid organs, vessels and bowel is limited secondary to the lack of con trast administration. Postsurgical changes involve the pancreatic head. A 57 x 38 millimeter mass is present. The remainder the pancreas appears unremarkable. A percutaneous drain has its tip in the left upper quadrant. A ga strojejunostomy is present. A tiny amount of free air likely is secondary to the recent surgery. Pneumobilia is present. Spleen, adrenals and kidneys demonstrate no significant abnormality. The appendix is normal. There is no evidence of diverticulitis. An intra-abdominal abscess is not noted. IMPRESSION: Postsurgical changes involving the pancreatic head. A 57 x 38 millimeter mass is present within this region. Presumably the mass has been resected and this represents a hematoma. Another co nsideration is that a portion of this represents residual mass. This should be correlated with the [place] rgical note. When a followup examination is performed contrast should be administered. Gastrojejunostomy
[2017-12-09] MEDS ORDERED: GABAPENTIN 300 MG CAP PO SCH (14:00)
--- NOTE | 2017-12-09 16:59 | P.SSS ---
Patient History Date of Service: 12/09/17 Reason for admission: Acute/subacute CVA History of Present Illness: Mr Combs is a 67-year-old male with history of hypertension, dyslipidemia, previous CVA in 2017, who in 11/25/17 had a pancreatic mass removed, according to his it was benign. Yesterday morning about 5:00 a.m., he started feeling numbness in his left hand. Prior done the the numbness was getting worse and affecting his whole arm. He denied any numbness or tingling in his left leg or face. He also has been feeling more weak since had surgery last week. CT of the head was remarkable for 3 centimeter low-density area within the right occipital lobe representing an acute/subacute ischemic stroke. He also has a 5 cm area of encephalomalacia on the left occipital lobe representing on ald stroke. At my encounter, he was on non-distress, alert and oriented x3. Allergies No Known Allergies Allergy (Verified 09/27/17 08:46) Home Medications: Amlodipine [Norvasc*] 10 mg PO DAILY 09/27/17 Atorvastatin Calcium [Lipitor] 40 mg PO DAILY 09/27/17 Losartan Potassium 100 mg PO DAILY 09/27/17 Pantoprazole [Protonix Tab*] 40 mg PO DAILY 09/27/17 Gabapentin [Neurontin*] 300 mg PO TID 12/09/17 - Past Medical/Surgical History Has patient received pneumonia vaccine in the past: No Diabetic: No -: Hypertension -: CVA -: Hyperlipidemia -: Neuropathy -: GERD -: Pancreatic mass removed - Family History Family History: Reviewed- Non-Contributory - Family History parents Notes: none - Social History Smoking Status: Current every day smoker Alcohol use: No CD- Drugs: No Caffeine use: Yes Place of Residence: Home Review of Systems 10-point ROS is otherwise unremarkable Physical Examination - Vital Signs Temperature: 97.4 F Blood Pressure: 129/60 Pulse: 101 Respirations: 18 Pulse Ox (%): 98 - Physical Exam General: Alert, In no apparent distress HEENT: Atraumatic, PERRLA, Mucous membr. moist/pink, EOMI, Sclerae nonicteric Neck: Supple, 2+ carotid pulse no bruit, No LAD, Without JVD or thyroid abnormality Respiratory: Clear to auscultation bilaterally, Normal air movement Cardiovascular: Regular rate/rhythm, Normal S1 S2 Gastrointestinal: Normal bowel sounds, No tenderness Musculoskeletal: No tenderness Integumentary: No rashes Neurological: Normal gait, Normal speech, Normal strength at 5/5 x4 extr, Normal tone, Normal affect Lymphatics: No axilla or inguinal lymphadenopathy - Studies Laboratory Data (last 24 hrs) 12/09/17 05:09: Sodium 144, Potassium 3.3 L, BUN 14, Creatinine 0.70, Glucose 107 H, Triglycerides 97, Cholesterol 95, HDL Cholesterol 31 L, Cholesterol/HDL Ratio 3.06 12/09/17 05:09: WBC 11.8 H D, Hgb 9.8 L, Hct 28.3 L, Plt Count 584 H 12/09/17 01:00: Potassium 3.4 L 12/08/17 17:40: PT 14.1 H, INR 1.19, APTT 28.1 12/08/17 17:40: WBC 13.8 H, Hgb 10.3 L, Hct 30.3 L, Plt Count 585 H 12/08/17 17:40: Sodium 143, Potassium 2.7 L*, BUN 17, Creatinine 0.90, Glucose 111 H, Magnesium 2.3, Total Bilirubin 0.3, AST 15, ALT 14, Alkaline Phosphatase 67 - Diagnosis (Problem(s)) (1) Dyslipidemia Current Visit: Yes Status: Acute (2) Hypertension Current Visit: Yes Status: Acute Qualifiers: Hypertension type: essential hypertension Qualified Code(s): I10 - Essential (primary) hypertension (3) Ischemic stroke Current Visit: Yes Status: Acute Treatment Summary: Overall during the hospital stay patient remained stable Was initially admitted to the hospital for left-sided arm numbness that began this morning along with him and visual disturbance. Patient had CT was initially positive for ischemic infarct. MRI was positive for left-sided parietal, occipital and frontal lobe ischemia. Patient also had carotid Doppler here in the hospital which was consistent with RCA stenosis of 95%. At that time neurology was consulted who recommended anti deal platelet therapy with aspirin and Plavix. Patient was started on aspirin Plavix here in the hospital along with Lipitor 80 mg. Patient did not have any neurological deficit however it due to 95% stenosis of the RCA which was symptomatic patient is at high risk for recurrent strokes and thus patient had referral made out to cardiovascular surgeon at [facility] for transfer to get surgical procedure. Patient was accepted at [facility] and was transferred to the hospital under stable condition. Patient was asked to continue taking his low aspirin Plavix and Lipitor over at the other hospital as well. Patient demonstrated understanding and thus was transferred over to the [facility] under stable condition. - Disposition Disposition: ROUTINE DISCHARGE
[2017-12-09] MEDS ORDERED: KCL 20 MEQ/100 mL IVPB 20 MEQ/100 ML BAG IV SCH (17:00)
--- NOTE | 2017-12-09 17:10 | CON ---
Reason For Consultation: Consultation called because of stroke. History Of Present Illness: Mr. Mata is a 67-year-old, right-handed, patient with hyperten steve, dyslipidemia, prior stroke in 2017, from which he recovered very well. He was doing well at ak s baseline, and yesterday, actually 2 days ago, when around 5 a.m., he woke up and noticed some numbn ess in his left hand and leg, but he also told me, this is from the ER report, that he had right-side d incoordination and weakness, and he could not stand on his right leg because of weakness. He denie d facial involvement at the time. He came in to [facility], had head CT scan that showed a 3 cm area in the right occipital lobe from his prior stroke. He actually said the stroke in the past more affected his vision and his memory and thinking than his use of arms and legs. This area on sc an actually looked to be about a 5 cm area of encephalomalacia in the left occipital lobe. The patie nt was evaluated by MRI of the brain that identified on the right parietal lobe right occipital lobe junction, small areas of ischemic stroke, and the study also identified severe stenosis of the right carotid bulb rated at around 95% on the carotid Doppler study. His neck MR angiogram was also consis tent with approximately 95% stenosis of the right carotid bulb. Despite the significant blockage in the right carotid artery and distribution of vessels, patient's c linical exam actually is much better than the study would suggest. He does not have very obvious sig nificant weakness or numbness in the right or left side of his upper and lower extremity and his face . He was on Eliquis 5 mg daily along with low-dose aspirin 81 mg daily while at home and he was on h is dyslipidemia medications and Norvasc. Past Medical History: Hypertension, prior stroke, dyslipidemia, peripheral neuropathy, gastroesophag eal reflux disease, and pancreatic mass. Past Surgical History: Removal of pancreatic mass. Allergies: NO KNOWN DRUG ALLERGIES. Medications: At home, Norvasc 10 mg daily, Eliquis 5 mg daily, aspirin 81 mg daily, Lipitor 40 mg da nancy, cholecalciferol, that is vitamin D, 2000 units weekly, Gralise 300 mg daily, losartan 100 mg alis ly, meclizine 25 mg daily, and Protonix 40 mg daily. Family History: Noncontributory. Social History: The patient continues to smoke on a daily basis. His alcohol use is negative. No I V drugs. The patient lives at home, has some family with him. Review of Systems: He denies any recent fevers, chills, nausea, vomiting, myalgias, arthralgias, headaches, weight turner e, or rash. No psychiatric issues. No gastrointestinal or genitourinary issues. Physical Examination: Vital Signs: Blood pressure 155 down to 117/70 to 56, pulse 79-87, respiratory rate 14-18, temperatu re 98.1. Oxygen saturation 95% room air. Weight 107 pounds. Height is 6 feet 1 inch. BMI 22.5. General: Mr. Combs is resting in bed. He is in no acute distress. He does have bruising noted in h is arms, legs, likely related to his combination of Eliquis and aspirin. HEENT: Otherwise, he is normocephalic, atraumatic. Sclerae anicteric. Oropharynx is moist, pink. Neck: Supple. Chest: Clear. Heart: Regular. Extremities: Show, again, bruising throughout the arms and legs. Neurological: He is alert and oriented to situation, place, and person. He has no expressive or rec eptive aphasias. He does have a significant right homonymous hemianopsia. Otherwise, his cranial ne rves are intact on 2 through 12. His extraocular movements are intact. His facial sensation is inta ct to light touch, temperature bilaterally. His face is symmetric with good excursion and smiling. Tongue and palate are midline. Motor examination in his left upper extremity. He has 4/5 proximally and distally. In the right upper extremity, he is 5/5 proximally, distally. In the lower extremiti es, on the left, 5-/5 proximal and distally. On the right, 5/5 proximally and distally. Sensory exa m, he does report equal responses or sensation to stimuli in the arms and in the legs bilaterally. H is coordination, he has mild dysmetria in the left compared to the right upper and lower extremities. His reflexes are depressed in upper and lower extremities. His gait, has a tendency to fall off to the left side, is wide-based and unsteady. Laboratory Studies: White blood cell count 11.8, hemoglobin 9.8, hematocrit 28.3, platelets 584. Co agulation panel, INR 1.19. Chemistries, he was admitted yesterday with sodium actually normal at 143 , today 144. His potassium was low at 2.7. Today, potassium corrected to 3.3. His creatinine is no rmal at 0.7. Cholesterol panel shows HDL of 31, LDL of 45, total cholesterol 95, cholesterol to HDL ratio of 3.06, triglycerides 97. Liver function studies are normal. Urinalysis shows 3+ amorphous s ediment, is otherwise unremarkable. His electrocardiogram shows sinus rhythm with premature ventricu lar complexes. His brain magnetic resonance angiogram shows short-segment stenosis involving the pro ximal and middle cerebral artery. There is a moderate short segment stenosis to the right middle cer ebral artery. The carotid artery ultrasound identified 95% stenosis in the right carotid bulb and th at is also matching what the neck magnetic resonance study identified as 95% stenosis in the right ca rotid bulb. Chest x-ray shows no acute abnormalities. Please note, based on his deficits, NIH Strok e Scale of 4. Assessment: Mr. Combs is a 67-year-old patient with marked right carotid bulb stenosis of 95% on 2 d ifferent study modalities. He does have some mild left-sided weakness and incoordination and he has a chronic right homonymous hemianopsia from prior stroke in the posterior circulation. His cholester ol panel is doing fairly well. He does have hypertension and history of a prior stroke and has there fore a high risk of stroke with actual worsening symptoms given his high degree of stenosis of the [facility] common carotid artery. Blood sugars are in an acceptable range ranging around 107-111. Did have hypokalemia, which is now corrected partially to 3.4 from 2.7. Plan: Continue the Eliquis 5 mg twice daily and aspirin 81 mg daily along with folate 1 mg daily. Lindsay e may be placed also on Plavix, however, that ought to be carefully considered. At this stage, he wi ll be best managed by acute intervention for possible angioplasty or carotid endarterectomy, given hi s high degree of stenosis and current high level of functioning. If this is not addressed, the patie nt will be at high risk of a devastating stroke, which can involve the entire left face, arm, and leg given the high degree of stenosis of the common carotid artery on the right. He should be transferr ed for higher level of care where an angioplasty and potential intervention can be done. At this sta ge, continue with DVT prophylaxis 40 mg subcutaneously daily. Continue with gabapentin for periphera l neuropathy 300 mg twice daily. Okay to continue nicotine patch for tobacco withdrawal and his bloo d pressure medications may be managed such that he has some mild permissive hypertension during the p hase at which he is in an acute stroke to reduce the chance of a stroke completion. The patient will be followed if he is still in the hospital or once if he is transferred and has angioplasty, he may follow up with Dr. Fox in clinic 1 month later. JL Voice ID: [id number] Report ID: [id number]
[2017-12-09 18:12] VITALS: BP 123/52; TEMP 98.5
[2017-12-10] MEDS ORDERED: FOLIC ACID 1 MG TABLET PO SCH (09:00)
[2017-12-10] MEDS ORDERED: CLOPIDOGREL 75 MG TABLET PO SCH (09:00)
[2017-12-10] MEDS ORDERED: AMLODIPINE 10 MG TAB PO SCH (09:00)
[2017-12-10] MEDS ORDERED: LOSARTAN POTASSIUM 50 MG TABLET PO SCH (09:00)
[2017-12-10] MEDS ORDERED: PANTOPRAZOLE 40MG TABLET PO SCH (09:00)
--- NOTE | 2017-12-12 08:22 | ECHO ---
HEIGHT: 6 ft 1 in WEIGHT: 170 lb 5 oz DATE OF STUDY: 12/09/[address]: 2-DIMENSIONAL: YES M.MODE: YES DOPPLER: YES COLOR FLOW: YES TDS: YES PORTABLE: NO DEFINITY: NO BUBBLE STUDY: NO DIAGNOSIS: STROKE CARDIAC HISTORY: CATHERIZATION: NO SURGERY: NO PROSTHETIC VALVE: NO PACEMAKER: NO MEASUREMENTS (cm) DIASTOLIC (NORMALS) SYSTOLIC (NORMALS) IVSd 0.9 (0.6-1.2) LA Diam 3.5 (1.9-4.0) LVEF 55% LVIDd 4.3 (3.5-5.7) LVIDs 3.1 (2.0-3.5) %FS 28% LVPWd 1.0 (0.6-1.2) Ao Diam 3.0 (2.0-3.7) 2 DIMENSIONAL ASSESSMENT: RIGHT ATRIUM: NORMAL LEFT ATRIUM: NORMAL RIGHT VENTRICLE: NORMAL LEFT VENTRICLE: NORMAL TRICUSPID VALVE: NORMAL MITRAL VALVE: NORMAL PULMONIC VALVE: NORMAL AORTIC VALVE: NORMAL PERICARDIAL EFFUSION: NONE AORTIC ROOT: NORMAL LEFT VENTRICULAR WALL MOTION: NORMAL DOPPLER/COLOR FLOW: NORMAL COMMENTS: NORMAL 2D ECHOCARDIOGRAPHY WITH DOPPLER. NO WALL MOTION ABNORMALITIES. NO EFFUSION. NO THROMBUS. NO VEGETATION. TECHNOLOGIST: MARCELINO RINCON
== END 2017-12-09 19:30 | disposition short-term general hospital (02) | DRG 65 ==
LOC: ER 16:43 → ERHOLD 21:20 → 2ND 21:50 → OBSVTOIN 12-09 09:27
PROVIDERS: ADMIT Internal Medicine; ATTEND Family Medicine
DX: I63.9 Cerebral infarction, unspecified (principal); I69.354 Hemiplegia and hemiparesis following cerebral infarction affecting left non-dominant side; E87.6 Hypokalemia; I10 Essential (primary) hypertension; G62.9 Polyneuropathy, unspecified; K21.9 Gastro-esophageal reflux disease without esophagitis; E78.5 Hyperlipidemia, unspecified; I65.21 Occlusion and stenosis of right carotid artery; G93.89 Other specified disorders of brain; I69.398 Other sequelae of cerebral infarction; H53.461 Homonymous bilateral field defects, right side; Z86.73 Personal history of transient ischemic attack (TIA), and cerebral infarction without residual deficits; Z79.01 Long term (current) use of anticoagulants; Z79.82 Long term (current) use of aspirin; F17.210 Nicotine dependence, cigarettes, uncomplicated; R29.701 NIHSS score 1
CPT/HCPCS: 36415; 70450; 70544; 70549; 70553; 71045; 74176; 80048; 80061; 80076; 81003; 81015; 82550; 82553; 83735; 83880; 84132; 84484; 85025; 85610; 85730; 87040; 93005; 93306; 93880; 94640; 96365; 96366; 97163; 99285; A9577; J1650

== ENCOUNTER 2024-04-23 13:35 | Emergency (ER) | payer OTHER ==
[2024-04-23 14:22] LABS: Absolute Lymphocytes (CBC) 0.6 K/uL (0.7-4.9); Absolute Monocytes 0.4 K/uL (0.1-1.3); Basophils % 0.4 % (0-1.3); Eosinophils % 0.1 % (0-4.4); Hematocrit 41.9 % (39.6-49.0); Hemoglobin 14.1 g/dL (13.6-17.9); Lymphocytes % 6.3 % (15.3-44.8); MCH 31.4 pg (27.0-35.0); MCHC 33.8 g/dL (32.0-36.0); MCV 92.9 fL (80-100); Neutrophils % 89.2 % (41.7-73.7); Platelets 200 thou/uL (152-406); RBC Red Blood Cell Count 4.51 M/uL (4.33-5.43)
[2024-04-23 14:27] LABS: PT Prothrombin Time 11.1 SECONDS (9.4-12.5); Protime INR 1.06
[2024-04-23 14:37] LABS: ALT/SGPT 23 U/L (16-61); AST/SGOT 17 U/L (15-37); Albumin/Globulin Ratio 0.9 (1.1-1.8); Alkaline Phosphatase 99 U/L (45-117); Anion Gap 9.1 mEq/L (5.0-15.0); BUN Blood Urea Nitrogen 20 mg/dL (7-18); Bicarbonate 27 mEq/L (21-32); Bilirubin Total 0.3 mg/dL (0.2-1.0); Globulin 3.4 g/dL (2.3-3.5); Glomerular Filtration Rate 54 ml/min (=/>90); Glucose Level 142 mg/dL (74-106); Potassium 4.1 mEq/L (3.5-5.1); Protein, Total 6.4 g/dL (6.4-8.2); Sodium Level 143 mEq/L (136-145); Troponin High Sensitivity 7.1 pg/mL (<58.9)
[2024-04-23 14:41] LABS: Bilirubin Direct < 0.2 mg/dL (0-0.2); Bilirubin Indirect, Calculated 0.1 mg/dL (0.2-0.8)
[2024-04-23] MEDS ORDERED: NA CHLORIDE 0.9% 500 ML ONE (14:45)
[2024-04-23 15:18] LABS: Blood Morphology Comment NOT SEEN (NOT SEEN); Platelet Estimate ADEQ; White Blood Cell Scan OK (OK)
--- NOTE | 2024-04-23 15:20 | RAD REPORT ---
EXAMINATION: CT ABDOMEN AND PELVIS WITH AND WITHOUT CONTRAST CLINICAL INDICATION: Male, 74 years old.rectal bleeding TECHNIQUE: CT abdomen and pelvis was performed before and after the administration of IV contrast as per department protocol. Axial, sagittal and coronal reconstructions were obtained. One or more of the following dose reduction techniques were used: Automated exposure control, adjustment of the mA a nd/or kV according to patient size, and/or iterative reconstruction. Unless otherwise specified, incidental findings do not require dedicated imaging follow-up. [id number]. COMPARISON: 02/16/2018 FINDINGS: LOWER CHEST: No acute process identified.No significant pericardial effusion. Circumferential thicken ing distal esophagus.Coronary artery calcifications. UPPER GI: No significant abnormality. LIVER: No significant focal abnormality. GALLBLADDER/BILE DUCTS: Cholecystectomy.?Pneumobilia which is a chronic finding. Choledochojejunostom y. PANCREAS: Resection of the pancreatic head. SPLEEN: Unremarkable. ADRENALS: No adrenal masses. KIDNEYS AND URETERS: No hydronephrosis.Low density and/or too small to characterize renal lesions whi ch are statistically benign. ABDOMINAL AORTA AND OTHER VESSELS: Moderate atherosclerotic changes without aortic aneurysm. PERITONEUM: Enlarging cystic structure/collection at the splenorenal ligament. This measures 5.7 cm, previously 4.7 cm. This has benign imaging features. LYMPH NODES: No pathologic lymphadenopathy. ABDOMINAL WALL: Unremarkable SMALL BOWEL/COLON: Intussusception at the rectum with suspected lower sigmoid polypoid mass as a lead point. No evidence of active gastrointestinal bleeding. URINARY BLADDER: Underdistended but grossly unremarkable. REPRODUCTIVE ORGANS: No pathologic process. MUSCULOSKELETAL: Remote T12 and L1 compression fractures. ADDITIONAL FINDINGS: None. IMPRESSION: Intussusception at the distal sigmoid and rectum with possible sigmoid polypoid mass as the lead poin t. Recommend surgical consultation. No active gastrointestinal bleeding identified.
[2024-04-23 16:05] LABS: Specific Gravity > 1.030 (1.005-1.030); Sqamous Epithelial <5 /HPF (None Seen); Urine Bacteria None Seen /HPF (<20); Urine Bilirubin NEGATIVE (Negative); Urine Blood 1+ (Negative); Urine Clarity Clear (Clear); Urine Color Yellow (Yellow); Urine Crystals Unidentified Few /HPF (None Seen); Urine Culture Reflex Order NOT NEEDED; Urine Glucose NEGATIVE (Negative); Urine Ketones NEGATIVE (Negative); Urine Micro Reflex YN NO BILL MICROSCOPIC; Urine Mucus Slight /HPF (None Seen); Urine Nitrite NEGATIVE (Negative); Urine Protein NEGATIVE (Negative); Urine Urobilinogen 1+ (Normal); Urine WBC <5 /HPF (<5); Urine pH 6.5 (5.0-7.0)
--- NOTE | 2024-04-23 16:41 | EDPHYS ---
Physician Documentation [facility] Name: Manuel Combs Age: 74 yrs Sex: Male : 1950 Arrival Date: 04/23/2024 Time: 13:35 Bed 7 Private MD: ED Physician Afshin Duggan HPI: 04/23 14:10 This 74 yrs old Male presents to ER via Ambulatory with complaints of Rectal Bleeding. cp 14:10 The patient presents to the emergency department with bleeding from the rectum/anus, cp that is moderate. 14:10 Onset: The symptoms/episode began/occurred today, with bowel movement. cp 14:10 Associate signs and symptoms: Pertinent negatives: abdominal pain, constipation, cp diarrhea, fever, vomiting. Historical: - Allergies: 13:45 No Known Allergies; ll1 - PMHx: 13:45 GERD; Hyperlipidemia; Hypertension; neuropathy; stroke last 2016; ll1 - Immunization history:: Adult Immunizations up to date. - Infectious Disease History:: Denies. - Social history:: Smoking status: Patient reports the use of cigarette tobacco products, smokes two packs cigarettes per day. ROS: 14:15 Constitutional: Negative for body aches, chills, fever, poor PO intake, cp 14:15 Eyes: Negative for injury, pain, redness, and discharge, cp 14:15 ENT: Negative for drainage from ear(s), ear pain, sore throat, difficulty swallowing, difficulty handling secretions, 14:15 Cardiovascular: Negative for chest pain, edema, palpitations, 14:15 Respiratory: Negative for cough, shortness of breath, wheezing, 14:15 Abdomen/GI: Positive for rectal pain, rectal bleeding, Negative for abdominal pain, vomiting, diarrhea, constipation, 14:15 Neuro: Negative for altered mental status, dizziness, headache, numbness, weakness, 14:15 All other systems are negative, Exam: 14:20 Constitutional: The patient appears in no acute distress, alert, awake, cp non-diaphoretic, non-toxic, well developed, uncomfortable, thin 14:20 Head/Face: Normocephalic, atraumatic. cp 14:20 Eyes: Periorbital structures: appear normal, Conjunctiva: normal, no exudate, no injection, Sclera: no appreciated abnormality, Lids and lashes: appear normal, bilaterally, 14:20 ENT: External ear(s): are unremarkable, Nose: is normal, Mouth: Lips: moist, Oral mucosa: moist, Posterior pharynx: Airway: no evidence of obstruction, patent, 14:20 Neck: ROM/movement: is normal, is supple, without pain, no range of motions limitations, 14:20 Chest/axilla: Inspection: normal, 14:20 Cardiovascular: Rate: tachycardic, Edema: is not appreciated, JVD: is not appreciated, 14:20 Respiratory: the patient does not display signs of respiratory distress, Respirations: normal, no use of accessory muscles, no retractions, labored breathing, is not present, Breath sounds: are clear throughout, no decreased breath sounds, no stridor, no wheezing, 14:20 Abdomen/GI: Inspection: abdomen appears normal, Bowel sounds: active, all quadrants, Palpation: abdomen is soft and non-tender, in all quadrants, Rectal exam: prolapsed rectum noted with mild bleeding, quarter size and dime size masses noted. 14:20 Neuro: Orientation: to person, place \T\ time. Mentation: able to follow commands, Motor: moves all fours, no focal deficits, Sensation: no obvious gross deficits, 14:35 ECG was reviewed by the Attending Physician. Vital Signs: 13:58 BP 156 / 74; Pulse 102; Resp 18; Temp 97.4; Pulse Ox 100% ; Weight 53.52 kg; Height 6 ll1 ft. 2 in. ; Pain 0/10; 14:47 BP 110 / 68; Pulse 91; Resp 17; Pulse Ox 96% on R/A; ll1 15:58 BP 137 / 58; Pulse 95; Resp 17; Pulse Ox 99% on R/A; jb4 13:58 Body Mass Index 15.15 (53.52 kg, 187.96 cm) ll1 13:58 Pain Scale: Adult ll1 Procedures: 15:00 Reduction: of the prolapsed rectum, using manipulation, Patient tolerated well. cp MDM: 13:45 Medical Screening Exam initiated cp 14:45 Differential diagnosis: hemorrhoids, fissure, lower GI bleed, prolapse rectum, rectal cp mass, colon mass. 16:20 Data reviewed: vital signs, nurses notes, lab test result(s), EKG, radiologic studies, cp CT scan, I have discussed the patient's presentation/case with the attending Emergency Department Physician; and as a result, I will transfer patient. 16:20 Management of patient was discussed with the following: Occasional Caregiver: DR Hensley who cp recommends transfer for colorectal surgery consultation. Independent interpretation of the following test(s) in the Emergency Department EKG: See my EKG interpretation above. Care significantly affected by the following chronic conditions: Hypertension. Counseling: I had a detailed discussion with the patient and/or guardian regarding the historical points, exam findings, and any diagnostic results supporting the discharge/admit diagnosis, lab results, radiology results, the need to transfer to another facility, for higher level of care. 16:50 ED course: [facility], cp will consult. 17:07 ED course: consult with DR Rodriguez, geothermal operating engineer \[facility], will accept cp patient after discussion . 04/23 14:06 Order name: Basic Metabolic Panel; Complete Time: 14:52 cp 04/23 15:32 Interpretation: Normal except: CL 111; GLUC 142; BUN 20; CRE 1.37; GFR 54. cp 04/23 14:06 Order name: CBC with Diff; Complete Time: 15:30 cp 04/23 14:37 Interpretation: Normal except: HALEY% 89.2; LYM% 6.3; NEUT A 9.0; LYMA 0.6. cp 04/23 14:06 Order name: LFT's; Complete Time: 14:52 cp 04/23 14:06 Order name: Magnesium; Complete Time: 14:52 cp 04/23 14:06 Order name: PT-INR; Complete Time: 14:37 cp 04/23 14:06 Order name: Troponin HS; Complete Time: 14:52 cp 04/23 14:06 Order name: Urinalysis W/Microscopic; Complete Time: 16:18 cp 04/23 16:18 Interpretation: Normal except: Urine SG > 1.030; UBLD 1+; UUROB 1+; URBC 11-20. cp 04/23 14:06 Order name: Ptt, Activated; Complete Time: 14:37 cp 04/23 14:11 Order name: Type And Screen; Complete Time: 15:30 cp 04/23 15:30 Interpretation: Reviewed. cp 04/23 14:28 Order name: CBC Smear Scan; Complete Time: 15:30 EDMS 04/23 16:07 Order name: ABO/RH no charge; Complete Time: 16:18 EDMS 04/23 14:33 Order name: CT Abd/Pelvis- W/WO Contrast; Complete Time: 15:30 cp 04/23 14:06 Order name: EKG; Complete Time: 14:06 cp 04/23 14:06 Order name: Cardiac monitoring; Complete Time: 14:32 cp 04/23 14:06 Order name: EKG - Nurse/Tech; Complete Time: 14:32 cp 04/23 14:06 Order name: IV Saline Lock; Complete Time: 14:09 cp 04/23 14:06 Order name: Labs collected and sent; Complete Time: 14:09 04/23 14:06 Order name: O2 Per Protocol; Complete Time: 14:09 04/23 14:06 Order name: O2 Sat Monitoring; Complete Time: 14:09 cp EC:35 Rate is 87 beats/min. Rhythm is irregular. QRS interval is normal. QT interval is cp normal. T waves are Inverted in lead aVR. Interpreted by me. Reviewed by me. Administered Medications: 14:47 Drug: NS 0.9% IV 500 ml 500 ml IV at 1 bolus once; to be given as a bolus over 60 ll1 minutes Volume: 500 ml; Route: IV; Rate: 1 bolus; Site: right antecubital; 15:50 Follow up: Response: No adverse reaction; IV Status: Completed infusion; IV Intake: jb4 500ml 15:56 Follow up: Response: No adverse reaction; IV Status: Completed infusion; IV Intake: jb4 500ml Disposition Summary: 04/23/24 16:41 Transfer Ordered Notes: Transfer Location: [facility] cp Reason: Higher level of care cp Condition: Stable cp Problem: new cp Symptoms: have improved cp Accepting Physician: DR Rodriguez(04/23/24 18:08) iw Diagnosis - Rectal prolapse cp - Intussusception - Distal Sigmoid and Rectum cp - Mass of Sigmoid Colon cp - Unspecified atrial fibrillation cp Forms: - Medication Reconciliation Form cp - SBAR form cp Addendum: 04/26/2024 21:27 Co-signature as Attending Physician, Afshin Duggan MD I reviewed the patient's care r n provided by the Advanced Practice Provider and agree with the diagnosis and treatment plan. Signatures: Dispatcher [employer] Sharon Guthrie RN RN iw Afshin Duggan MD MD rn Page, Corey, PA PA cp Chucky Esparza RN RN ll1 Tigre Jane RN jb4 Corrections: (The following items were deleted from the chart) 04/23 14:33 14:33 Abdomen Pelvis W/Wo Con+CT.RAD.BRZ ordered. JU RODRIGUEZMD 16:44 16:41 Doctor cp cp 17:06 16:44 Doctor cp cp 17:07 17:06 Doctor cp cp 18:08 17:07 DR Rodriguez cp iw 04/24 14:31 04/23 16:30 Reduction: of the prolapsed rectum, using manipulation, Patient tolerated cp well. cp
--- NOTE | 2024-04-23 16:41 | ER ---
Nurse's Notes [facility] Name: Manuel Combs Age: 74 yrs Sex: Male : 1950 Arrival Date: 04/23/2024 Time: 13:35 Bed 7 Private MD: Diagnosis: Rectal prolapse;Intussusception-Distal Sigmoid and Rectum;Mass of Sigmoid Colon;Unspecified atrial fibrillation Presentation: 04/23 13:58 Chief complaint: Patient states: Significant amount of rectal bleeding and prolapsed ll1 rectal area started today. Coronavirus screen: Client denies travel out of the [place] in the last 14 days. At this time, the client does not indicate any symptoms associated with coronavirus-19. Ebola Screen: Patient denies travel to an Ebola-affected area in the 21 days before illness onset. Initial Sepsis Screen: Does the patient meet any 2 criteria? No. Patient's initial sepsis screen is negative. Does the patient have a suspected source of infection? No. Patient's initial sepsis screen is negative. Risk Assessment: Do you want to hurt yourself or someone else? Patient reports no desire to harm self or others. Onset of symptoms was April 23, 2024. 13:58 Method Of Arrival: Ambulatory ll1 13:58 Acuity: KARSON 2 ll1 Triage Assessment: 14:00 General: Appears uncomfortable, Behavior is calm, cooperative, appropriate for age. jb4 Pain: Complains of pain in rectum Quality of pain is described as aching. GI: Reports rectal bleeding, bloody stool, rectal pain. Historical: - Allergies: 13:45 No Known Allergies; ll1 - PMHx: 13:45 GERD; Hyperlipidemia; Hypertension; neuropathy; stroke last 2017; ll1 - Immunization history:: Adult Immunizations up to date. - Infectious Disease History:: Denies. - Social history:: Smoking status: Patient reports the use of cigarette tobacco products, smokes two packs cigarettes per day. Screenin:48 [facility] ED Fall Risk Assessment (Adult) History of falling in the last 3 months, ll1 including since admission No falls in past 3 months (0 pts) Confusion or Disorientation No (0 pts) Intoxicated or Sedated No (0 pts) Impaired Gait Yes (1 pt) Mobility Assist Device Used Yes (1 pt) Altered Elimination Yes (1 pt) Score/Fall Risk Level 3 or more points = High Risk Maintained a safe environment, Used ambulatory aids as needed (educated on \T\ assisted with). Abuse screen: Denies threats or abuse. Nutritional screening: No deficits noted. Tuberculosis screening: No symptoms or risk factors identified. Assessment: 14:32 Reassessment: No changes from previously documented assessment. Patient and/or family ll1 updated on plan of care and expected duration. Pain level reassessed. rectum reduced per CRAEANN Resendiz. Patient tolerated very well. 14:50 Reassessment: No changes from previously documented assessment. Patient and/or family jb4 updated on plan of care and expected duration. Pain level reassessed. 15:58 Reassessment: No changes from previously documented assessment. Patient and/or family jb4 updated on plan of care and expected duration. Pain level reassessed. Patient is alert, oriented x 3, equal unlabored respirations, skin warm/dry/pink. Vital Signs: 13:58 BP 156 / 74; Pulse 102; Resp 18; Temp 97.4; Pulse Ox 100% ; Weight 53.52 kg; Height 6 ll1 ft. 2 in. ; Pain 0/10; 14:47 BP 110 / 68; Pulse 91; Resp 17; Pulse Ox 96% on R/A; ll1 15:58 BP 137 / 58; Pulse 95; Resp 17; Pulse Ox 99% on R/A; jb4 13:58 Body Mass Index 15.15 (53.52 kg, 187.96 cm) ll1 13:58 Pain Scale: Adult ll1 ED Course: 13:38 Patient arrived in ED. al6 13:45 Chucky Esparza, DARCI is Primary Nurse. ll1 13:45 Armand Felipe PA is PHCP. cp 13:45 Afshin Duggan MD is Attending Physician. cp 13:45 Arm band placed on Patient placed in an exam room, on a stretcher. ll1 13:59 Triage completed. ll1 14:20 Initial lab(s) drawn, by me, sent to lab. Inserted saline lock: 18 gauge in right ll1 antecubital area, using aseptic technique. Blood collected. Flushed with 10 mL NS. 14:34 Type And Screen Sent. ll1 14:49 Patient has correct armband on for positive identification. Bed in low position. Call ll1 light in reach. Provided Education on: ER procedures and process. Client placed on continuous cardiac and pulse oximetry monitoring. NIBP monitoring applied. 14:49 Warm blanket given. cleaned rectal area of blood and sugar. New brief applied, ll1 tolerated well. 15:06 CT Abd/Pelvis- W/WO Contrast In Process Unspecified. EDMS 15:56 Urinalysis W/Microscopic Sent. jb4 15:58 Urine collected: clean catch specimen, giovana colored, Amount Voided: 200mL. jb4 16:[address] [facility]. bd 17:13 pt accepted in transfer to [facility] [address] bed [address] Guzmán admin bd approval given by Charito Gonzalez. 17:45 pt to be transported by [facility]. bd 18:07 No provider procedures requiring assistance completed. Patient transferred, IV remains iw in place. Administered Medications: 14:47 Drug: NS 0.9% IV 500 ml 500 ml IV at 1 bolus once; to be given as a bolus over 60 ll1 minutes Volume: 500 ml; Route: IV; Rate: 1 bolus; Site: right antecubital; 15:50 Follow up: Response: No adverse reaction; IV Status: Completed infusion; IV Intake: jb4 500ml 15:56 Follow up: Response: No adverse reaction; IV Status: Completed infusion; IV Intake: jb4 500ml Medication: 14:49 VIS not applicable for this client. ll1 Intake: 15:50 IV: 500ml; Total: 500ml. jb4 15:56 IV: 500ml; Total: 1000ml. jb4 Outcome: 16:41 ER care complete, transfer ordered by MD. hernandez 18:07 Transferred by ground EMS to [facility], Transfer form completed. iw X-rays sent w/ patient. 18:07 Condition: good 18:07 Discharge instructions given to patient, family, Instructed on the need for transfer, Demonstrated understanding of instructions, 18:08 Patient left the ED. iw Signatures: Dispatcher [employer] EDMS Angela Bautista Irene, RN RN iw Armand Felipe PA PA cp Tigre Jane RN RN jb4 Chucky Esparza RN RN ll1 Gala Saul RN RN pro3 Gayla Alexander6 Corrections: (The following items were deleted from the chart) 14:00 13:58 BP 156 / 74; Pulse 102bpm; Resp 18bpm; Pulse Ox 100%; 53.52 kg; Height 6 ft. 2 ll1 in.; BMI: 15.1; Pain 0/10, Adult; ll1 14:18 14:17 Non-Violent Restraint: Cognition: kb3 kb3
[2024-04-23 19:31] VITALS: TEMP 97.4
[2024-04-23 19:42] VITALS: BP 137/58; O2SAT 99
--- NOTE | 2024-04-26 13:02 | EKG ---
Test Date: 2024-04-23 Test Time: 14:28:34 Automotive Product Specialist: DELONTE MEASUREMENT RESULTS: Intervals: Rate: 87 [place]: QRSD: 68 QT: 364 QTc: 438 [place]: P: OK: QRS: 92 T: 70 INTERPRETIVE STATEMENTS: Atrial fibrillation Rightward axis Septal infarct, age undetermined Abnormal ECG Compared to ECG 12/08/2017 17:00:21 Right-axis deviation now present Myocardial infarct finding now present Sinus rhythm no longer present Atrial premature complex(es) no longer present ST (T wave) deviation no longer present Possible ischemia no longer present Electronically Signed On 04-26-24 12:59:21 DRAPERY EXAMINER by Jace Santillan
== END 2024-04-23 18:08 | disposition short-term general hospital (02) ==
LOC: ER 13:35
DX: K62.3 Rectal prolapse (principal); K56.1 Intussusception; K63.89 Other specified diseases of intestine; I48.91 Unspecified atrial fibrillation; F17.210 Nicotine dependence, cigarettes, uncomplicated
CPT/HCPCS: 85025; 81001; 80048; 36415; 86900; 83735; 86850; 85610; 86901; 80076; 85730; 84484; 74178; 96360; 99285; Q9967; J7040; 93005

== ENCOUNTER 2024-05-24 15:07 | Emergency (ER) | payer OTHER ==
[2024-05-24] MEDS ORDERED: NA CHLORIDE 0.9% 1,000 ML ONE (16:15)
[2024-05-24 16:23] LABS: Absolute Lymphocytes (CBC) 0.3 K/uL (0.7-4.9); Absolute Monocytes 0.5 K/uL (0.1-1.3); Absolute Neutrophil 13.8 K/uL (1.8-8.0); Basophils % 0.2 % (0-1.3); Eosinophils % 0.1 % (0-4.4); Hematocrit 32.4 % (39.6-49.0); Hemoglobin 10.7 g/dL (13.6-17.9); Lymphocytes % 1.9 % (15.3-44.8); MCH 30.6 pg (27.0-35.0); MCHC 33.1 g/dL (32.0-36.0); MCV 92.4 fL (80-100); MPV 6.7 fL (7.6-11.3); Monocytes % 3.3 % (3.3-12.3); Neutrophils % 94.5 % (41.7-73.7); Platelets 201 thou/uL (152-406); RBC Red Blood Cell Count 3.51 M/uL (4.33-5.43); Red Cell Distribution Width 15.2 % (12.1-15.2)
--- NOTE | 2024-05-24 16:25 | RAD REPORT ---
EXAMINATION: US BILATERAL LOWER EXTREMITY VENOUS DOPPLER CLINICAL INDICATION: SWELLING TECHNIQUE: Complete bilateral duplex sonography of the BILATERAL lower extremity veins was performed. The examination included compression for vein patency, color Doppler imaging and flow augmentation in response to distal compression of the distal external iliac, common femoral, femoral, popliteal, t ibial, and great and small saphenous veins. COMPARISON: No prior exam. FINDINGS: Duplex sonography testing of the veins of the BILATERAL lower extremity was performed. Color flow miesha ging shows all veins to be compressible with [id number] color filling. Pulsatile and phasic flow is present within all lower extremity deep and superficial veins examined. IMPRESSION: There is no deep vein or superficial vein thrombosis.
--- NOTE | 2024-05-24 16:40 | RAD REPORT ---
EXAMINATION: ONE VIEW CHEST XR CLINICAL INDICATION: FEVER TECHNIQUE: Frontal chest projection is submitted. Examination is limited by patient positioning and t echnique. COMPARISON: 12/08/2017 FINDINGS: The lungs are diffusely emphysematous but grossly clear. The heart is normal in size. No displaced fr actures identified. IMPRESSION: COPD without an acute process suspected.
[2024-05-24 16:41] LABS: PT Prothrombin Time 12.2 SECONDS (9.4-12.5); PTT, Activated Partial Thromb 25.9 SECONDS (24.3-36.9); Protime INR 1.16
[2024-05-24 17:03] LABS: Influenza A Ag Negative; Influenza B Ag Negative; SARS-CoV-2 Antigen Rapid Res Negative (Negative)
[2024-05-24 17:21] LABS: AST/SGOT 15 U/L (15-37); Albumin 1.7 g/dL (3.4-5.0); Albumin/Globulin Ratio 0.6 (1.1-1.8); Alkaline Phosphatase 116 U/L (45-117); Anion Gap 6.6 mEq/L (5.0-15.0); BUN Blood Urea Nitrogen 11 mg/dL (7-18); Bicarbonate 26 mEq/L (21-32); Bilirubin Total 0.5 mg/dL (0.2-1.0); Globulin 2.9 g/dL (2.3-3.5); Glomerular Filtration Rate 98 ml/min (=/>90); Glucose Level 90 mg/dL (74-106); Lipase 11 U/L (13-75); Protein, Total 4.6 g/dL (6.4-8.2); Sodium Level 142 mEq/L (136-145); Troponin High Sensitivity 39.1 pg/mL (<58.9)
[2024-05-24 17:23] LABS: ALT/SGPT < 14 U/L (16-61)
[2024-05-24 17:25] LABS: Potassium 2.6 mEq/L (3.5-5.1)
--- NOTE | 2024-05-24 18:12 | RAD REPORT ---
EXAM: CT brain without contrast HISTORY: fall COMPARISON: 12/08/2017 TECHNIQUE: Multiple contiguous axial images were obtained and a CT of the brain without contrast. Sag ittal and coronal reformats were performed. One or more of the following dose reduction techniques were used: Automated exposure control, adjust ment of the mA and/or kV according to patient size, and/or iterative reconstruction. FINDINGS: No evidence of hydrocephalus, intracranial hemorrhage, or extra-axial fluid collection. There are several areas of gliosis seen including left occipital lobe and right parietal lobe compat ible with old infarction. No evidence of midline shift or areas of brain edema. The calvarium is intact. The visualized paranasal sinuses and mastoid air cells are essentially clear . IMPRESSION: No evidence of acute intracranial abnormality. EXAM: CT of the cervical spine without contrast HISTORY: Neck pain, injury fall TECHNIQUE: Multiple contiguous axial images were obtained in a CT of the cervical spine without contr ast. Sagittal and coronal reformats were performed. FINDINGS: The vertebral bodies demonstrate normal height and alignment. No evidence of acute fracture or subluxation.. Moderate lower cervical degenerative changes. No prevertebral soft tissue swelling is seen. Heavy carotid atherosclerosis with right-sided carotid stent. The posterior facets are well aligned. Normal alignment of the skull base with the cervical spine is seen. The lung apices are unremarkable. IMPRESSION: No evidence of acute osseous abnormality of the cervical spine.
[2024-05-24] MEDS ORDERED: KCL 20 MEQ/100 mL IVPB 100 ML IV ONE ×2 (18:22→21:59)
[2024-05-24] MEDS ORDERED: NA CHLORIDE 0.9% 250 ML ONE ×2 (18:22→20:29)
[2024-05-24] MEDS ORDERED: POTASSIUM 25 MEQ EFFERV TAB ONE (18:22)
--- NOTE | 2024-05-24 18:27 | RAD REPORT ---
EXAM: CT CHEST, ABDOMEN AND PELVIS WITH CONTRAST CLINICAL INDICATION: Fall TECHNIQUE: CT chest, abdomen and pelvis was performed, following the administration of contrast, as p er department protocol. Axial, sagittal and coronal reconstructions were obtained. One or more of the following dose reduction techniques were used: Automated exposure control, adjustment of the mA a nd/or kV according to patient size, and/or iterative reconstruction. Unless otherwise specified, incidental findings do not require dedicated imaging follow-up. COMPARISON: No prior exam. FINDINGS: LUNGS: No evidence of airspace or interstitial process. No nodules. Mild COPD. PLEURA: Trace pleural fluid bilaterally. MEDIASTINUM AND LYMPH NODES: No mediastinal mass or fluid collection. Normal size mediastinal, hilar, and axillary lymph nodes. OSSEOUS STRUCTURES AND CHEST WALL: Intact. LIVER: No concerning hepatic mass. Trace pneumobilia suspected in the left lobe liver. Cholecystectom y clips. 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 SPLEEN: Normal size. No focal lesion. Adjacent loculated fluid versus cystic structure measures 5 cm. ADRENALS: Normal; no mass. KIDNEYS: Normal size and contour. No hydronephrosis. Bilateral renal lesions which are either benign in appearance or too small to accurately characterize but statistically benign. Multiple renal calculi are present on the left. URINARY BLADDER: Normal contour. GASTROINTESTINAL TRACT: No bowel obstruction, free air, significant free fluid or abscess. APPENDIX: Appendix not visualized, but no inflammatory changes in region of appendix. LYMPH NODES: No lymphadenopathy. MUSCULOSKELETAL: Significant degenerative change with dextroscoliosis of the thoracolumbar spine. Pro minent anterior wedge compression deformity thoracolumbar junction. OTHER: Rectal wall thickening is present with surrounding inflammation in the fat. Rectal wall measur es up to 10 mm. IMPRESSION: No acute trauma-related finding observed. Additional findings fully detailed above.
--- NOTE | 2024-05-24 18:55 | ER ---
Nurse's Notes [facility] Name: Manuel Combs Age: 74 yrs Sex: Male : 1950 Arrival Date: 05/24/2024 Time: 15:07 Bed 4 Private MD: Diagnosis: Cellulitis of left lower limb;Rectal Wall Thickening with inflammation;Hypokalemia;Unspecified atrial fibrillation Presentation: 05/24 15:21 Chief complaint: Patient states: Fever and fatigue EMS states: 20 L FA, 600 ml NS ll1 bolus, 1 gm Tylenol given en route. HR 120-130's. Fingerstick 180. Coronavirus screen: Client denies travel out of the [place] in the last 14 days. fatigue, fever, Client presents with at least one sign or symptom that may indicate coronavirus-19. Standard/surgical mask placed on the client. Ebola Screen: Patient denies travel to an Ebola-affected area in the 21 days before illness onset. Initial Sepsis Screen: Does the patient meet any 2 criteria? No. Patient's initial sepsis screen is negative. Does the patient have a suspected source of infection? No. Patient's initial sepsis screen is negative. Risk Assessment: Do you want to hurt yourself or someone else? Patient reports no desire to harm self or others. Onset of symptoms. 15:21 Method Of Arrival: EMS: [place] [id number] 15:21 Acuity: KARSON 3 ll1 Triage Assessment: 15:23 General: Appears uncomfortable, Behavior is calm, cooperative, appropriate for age. ll1 General: Reports fever for fatigue for. Pain: Denies pain. Neuro: Reports weakness. Historical: - Allergies: 15:20 No Known Allergies; ll1 - PMHx: 15:20 GERD; Hyperlipidemia; Hypertension; neuropathy; stroke last 2017; ll1 - Immunization history:: Adult Immunizations up to date. - Infectious Disease History:: Denies. - Social history:: Smoking status: Patient reports the use of cigarette tobacco products, smokes one pack cigarettes per day. Screenin:20 [facility] ED Fall Risk Assessment (Adult) History of falling in the last 3 months, bp including since admission No falls in past 3 months (0 pts) Confusion or Disorientation No (0 pts) Intoxicated or Sedated No (0 pts) Impaired Gait No (0 pts) Mobility Assist Device Used No (0 pt) Altered Elimination No (0 pt) Score/Fall Risk Level 0 - 2 = Low Risk Oriented to surroundings. Abuse screen: Denies threats or abuse. Denies injuries from another. Nutritional screening: No deficits noted. Tuberculosis screening: No symptoms or risk factors identified. Assessment: 15:20 General: Appears in no apparent distress. Behavior is calm, cooperative, appropriate bp for age. Pain: Denies pain. Neuro: No deficits noted. Cardiovascular: Rhythm is sinus tachycardia. Respiratory: Airway is patent. GI: No signs and/or symptoms were reported involving the gastrointestinal system. : No signs and/or symptoms were reported regarding the genitourinary system. EENT: No deficits noted. Derm: No deficits noted. Musculoskeletal: No deficits noted. 19:36 General: Appears in no apparent distress. comfortable, Behavior is calm, cooperative. al5 Pain: Denies pain. Neuro: Level of Consciousness is awake, alert, obeys commands, Oriented to person, place, time, situation. Cardiovascular: Capillary refill < 3 seconds Patient's skin is warm and dry. Rhythm is atrial fibrillation. Respiratory: Airway is patent Respiratory effort is even, unlabored, Respiratory pattern is regular, symmetrical. GI: Abdomen is flat, non-distended, Abd is soft and non tender X 4 quads. : No signs and/or symptoms were reported regarding the genitourinary system. 19:36 EENT: No signs and/or symptoms were reported regarding the EENT system. Derm: Skin is al5 intact, redness and swelling to L lower extremity. Musculoskeletal: No signs and/or symptoms reported regarding the musculoskeletal system. 20:50 Reassessment: Patient appears in no apparent distress at this time. No changes from al5 previously documented assessment. Patient and/or family updated on plan of care and expected duration. Pain level reassessed. Patient is alert, oriented x 3, equal unlabored respirations, skin warm/dry/pink. 21:41 Reassessment: Patient appears in no apparent distress at this time. No changes from al5 previously documented assessment. Patient and/or family updated on plan of care and expected duration. Pain level reassessed. Patient is alert, oriented x 3, equal unlabored respirations, skin warm/dry/pink. gave report to DARCI Casper at [facility]. Vital Signs: 15:21 BP 133 / 72; Pulse 102; Resp 18; Temp 100.8; Pulse Ox 98% ; Weight 54.43 kg; Height 6 ll1 ft. 2 in. ; Pain 0/10; 16:52 BP 98 / 47; Pulse 92; Resp 16; Pulse Ox 99% ; bp 19:00 BP 116 / 53; Pulse 104; Resp 18 S; Pulse Ox 96% on R/A; aa5 20:00 BP 113 / 70; Pulse 91; Resp 16; Pulse Ox 98% on R/A; al5 21:00 BP 132 / 55; Pulse 88; Resp 19; Temp 99.3; Pulse Ox 97% on R/A; al5 22:00 BP 134 / 65; Pulse 99; Resp 17; Pulse Ox 96% on R/A; al5 15:21 Body Mass Index 15.41 (54.43 kg, 187.96 cm) ll1 15:21 Pain Scale: Adult ll1 ED Course: 15:10 Patient arrived in ED. ll1 15:13 Brandon White, DARCI is Primary Nurse. bp 15:19 Armand Felipe PA is PHCP. cp 15:19 Nathalie Reed MD is Attending Physician. cp 15:20 Arm band placed on Patient placed in an exam room, on a stretcher. ll1 15:20 Patient has correct armband on for positive identification. bp 15:23 Triage completed. ll1 15:23 Maintain EMS IV. Dressing intact. Good blood return noted. Site clean \T\ dry. Gauge \T\ ll 1 site: 20 G L FA. 15:50 Radiology exam delayed due to lab results not completed at this time. (BUN/Creatinine) jc4 IV insertion attempt and/or patient not having appropriate IV at this time. 16:20 US Extremity Venous W Compression Ovi In Process Unspecified. EDMS 16:30 Chest Single View XRAY In Process Unspecified. EDMS 17:25 Notified Nurse Practitioner and/or Physician Intelligence Engineer of a critical lab result(s), ll1 potassium 2.6. 17:26 Grayson Gallo MD is Attending Physician. cp 18:02 Chest Abdomen Pelvis W Cont In Process Unspecified. EDMS 18:02 Head C Spine Mpr Wo Con In Process Unspecified. EDMS 18:[address] [place]. bp 20:00 Transfer initiated \T\ 1999. hw 21:29 Provided Education on: need for transfer. al5 21:29 No provider procedures requiring assistance completed. al5 21:38 Patient accepted to [facility] by Dr. Ayala \T\[id number], report called to [phone]. Pt going to 7 tower room 717. [facility] to transport. 21:44 Inserted saline lock: 22 gauge in right forearm, using aseptic technique. Flushed with oe 10 mL NS. 22:20 Patient transferred, IV remains in place. al5 Administered Medications: 16:22 Drug: NS 0.9% IV 1000 ml IV at 1000 ml once; to be given as a bolus over 60 minutes bp Route: IV; Rate: 1000 ml; Site: left forearm; 18:32 Drug: Potassium PO Effervescent Tablet 50 mEq PO once; dissolve in 4 ounces of water or bp juice Route: PO; 20:47 Follow up: Response: No adverse reaction al5 18:32 Drug: Potassium Chloride IV 20 mEq IV at calculated rate once; administer over 1-2 bp hours Route: IV; Rate: calculated rate; Site: left forearm; 20:47 Follow up: Response: No adverse reaction; IV Status: Completed infusion; IV Intake: al5 100ml 20:47 Drug: Piperacillin-Tazobactam IVPB 3.375 grams IVPB once over 60 mins; (mix in NS 100 al5 mL) Route: IVPB; Infused Over: 60 mins; Site: left forearm; 21:26 Follow up: Response: No adverse reaction; IV Status: Completed infusion; IV Intake: al5 100ml 21:26 Drug: vancoMYCIN IVPB 1 grams IVPB once over 2 hrs Route: IVPB; Infused Over: 2 hrs; al5 Site: left forearm; 22:30 Follow up: Response: No adverse reaction; IV Status: Infusion continued upon transfer al5 22:06 Drug: NS 0.9% IV 500 ml 500 ml IV at 75 ml/hr once; to be given as a bolus over 30 al5 minutes Volume: 500 ml; Route: IV; Rate: 75 ml/hr; Site: right forearm; 22:30 Follow up: Response: No adverse reaction; IV Status: Infusion continued upon transfer al5 22:06 Drug: Potassium Chloride IV 20 mEq IV at calculated rate once; administer over 1-2 al5 hours Route: IV; Rate: calculated rate; Site: right forearm; 22:30 Follow up: Response: No adverse reaction; IV Status: Infusion continued upon transfer al5 Medication: 15:20 VIS not applicable for this client. bp Intake: 20:47 IV: 100ml; Total: 100ml. al5 21:26 IV: 100ml; Total: 200ml. al5 Outcome: 18:54 ER care complete, transfer ordered by . cp 22:30 Transferred by ground EMS [facility] to [facility], [facility], al5 22:30 Condition: stable 22:30 Instructed on the need for transfer, 23:04 Patient left the ED. al5 Signatures: Dispatcher [employer] EDMS Lulu Guillen, RN RN aa5 Armand Felipe PA PA cp Espinosa, Orlando oe Peltier, Brian RN RN Chucky Carrero RN RN ll1 Gloria Moser RN RN al5 Rhett Etienne jc4 Luna Parisi Corrections: (The following items were deleted from the chart) 22: 21:35 General: Appears in no apparent distress. comfortable, Behavior is calm, al5 cooperative, al5 22: 21:35 Pain: Denies pain. al5 al5 22: 21:35 Neuro: Level of Consciousness is awake, alert, obeys commands, Oriented to al5 person, place, time, situation, al5 22: 21:35 Cardiovascular: Capillary refill < 3 seconds Patient's skin is warm and dry. al5 Rhythm is atrial fibrillation al5 : 21:35 Respiratory: Airway is patent Respiratory effort is even, unlabored, Respiratory al5 pattern is regular, symmetrical, al5 22: 21:35 GI: Abdomen is flat, non-distended, Abd is soft and non tender X 4 quads. al5 al5 22: 21:35 : No signs and/or symptoms were reported regarding the genitourinary system. al5al5 22: 21:35 EENT: No signs and/or symptoms were reported regarding the EENT system. al5 al5 22:10 21:41 Reassessment: gave report to DARCI Casper at [facility] al5 al5
--- NOTE | 2024-05-24 18:55 | EDPHYS ---
Physician Documentation [facility] Name: Manuel Combs Age: 74 yrs Sex: Male : 1950 Arrival Date: 05/24/2024 Time: 15:07 Bed 4 Private MD: ED Physician Grayson Gallo HPI: 05/24 15:50 This 74 yrs old Male presents to ER via EMS with complaints of Fever. cp 15:50 The patient reports fever, with an emergency department temperature of 100.8 degrees cp Fahrenheit. 15:50 Onset: The symptoms/episode began/occurred today. Associated signs and symptoms: cp Pertinent positives: weakness. 15:50 Severity of symptoms: in the emergency department the symptoms are unchanged despite cp EMS interventions. 15:50 Daughter reports patient having recent colon resection surgery of 04-25-2024 by surgeon david at [facility]. Historical: - Allergies: 15:20 No Known Allergies; ll1 - PMHx: 15:20 GERD; Hyperlipidemia; Hypertension; neuropathy; stroke last 2016; ll1 - Immunization history:: Adult Immunizations up to date. - Infectious Disease History:: Denies. - Social history:: Smoking status: Patient reports the use of cigarette tobacco products, smokes one pack cigarettes per day. ROS: 15:55 Constitutional: Positive for fever, cp 15:55 Eyes: Negative for injury, pain, redness, and discharge, cp 15:55 Cardiovascular: Negative for chest pain, edema, palpitations, 15:55 Respiratory: Negative for cough, shortness of breath, wheezing, 15:55 Abdomen/GI: Negative for abdominal pain, vomiting, diarrhea, constipation, black/tarry stool, rectal bleeding, 15:55 Neuro: Positive for weakness, Negative for altered mental status, headache, syncope, 15:55 All other systems are negative, Exam: 16:00 Constitutional: The patient appears in no acute distress, alert, awake, non-toxic, well cp developed, well nourished, 16:00 Head/Face: Normocephalic, atraumatic. cp 16:00 Eyes: Periorbital structures: appear normal, Conjunctiva: normal, no exudate, no injection, Sclera: no appreciated abnormality, Lids and lashes: appear normal, bilaterally, 16:00 ENT: External ear(s): are unremarkable, Nose: is normal, Mouth: Lips: dry, Oral mucosa: moist, Posterior pharynx: Airway: no evidence of obstruction, patent, 16:00 Neck: ROM/movement: is normal, is supple, without pain, no range of motions limitations, 16:00 Chest/axilla: Inspection: normal, Palpation: is normal, no crepitus, no tenderness, 16:00 Cardiovascular: Rate: tachycardic, Rhythm: irregular, Edema: is not appreciated, JVD: is not appreciated, 16:00 Respiratory: the patient does not display signs of respiratory distress, Respirations: normal, no use of accessory muscles, no retractions, labored breathing, is not present, Breath sounds: decreased breath sounds, that are mild, throughout, stridor, is not appreciated, wheezing: is not appreciated, 16:00 Abdomen/GI: Inspection: scar(s), mid line, Bowel sounds: active, all quadrants, Palpation: abdomen is soft and non-tender, in all quadrants, 16:00 Musculoskeletal/extremity: Extremities: noted in the left foot: erythema, pain, swelling, tenderness, 16:00 Neuro: Orientation: to person, place, situation, Mentation: able to follow commands, Motor: moves all fours, 16:33 ECG was reviewed by the Attending Physician. cp 20:40 ECG was reviewed by the Attending Physician. Vital Signs: 15:21 BP 133 / 72; Pulse 102; Resp 18; Temp 100.8; Pulse Ox 98% ; Weight 54.43 kg; Height 6 ll1 ft. 2 in. ; Pain 0/10; 16:52 BP 98 / 47; Pulse 92; Resp 16; Pulse Ox 99% ; bp 19:00 BP 116 / 53; Pulse 104; Resp 18 S; Pulse Ox 96% on R/A; aa5 20:00 BP 113 / 70; Pulse 91; Resp 16; Pulse Ox 98% on R/A; al5 21:00 BP 132 / 55; Pulse 88; Resp 19; Temp 99.3; Pulse Ox 97% on R/A; al5 22:00 BP 134 / 65; Pulse 99; Resp 17; Pulse Ox 96% on R/A; al5 15:21 Body Mass Index 15.41 (54.43 kg, 187.96 cm) ll1 15:21 Pain Scale: Adult ll1 MDM: 15:19 Medical Screening Exam initiated cp 19:00 Data reviewed: vital signs, nurses notes, lab test result(s), EKG, radiologic studies, cp CT scan, plain films, and as a result, I will administer antibiotics. 19:00 Differential diagnosis: viral Infection, bacterial infection, bronchitis, pneumonia cp UTI, gastroenteritis, sepsis, cellulitis. I considered the following discharge prescriptions or medication management in the emergency department Medications were administered in the Emergency Department. See MAR. Care significantly affected by the following chronic conditions: Hypertension. Counseling: I had a detailed discussion with the patient and/or guardian regarding the historical points, exam findings, and any diagnostic results supporting the discharge/admit diagnosis, lab results, radiology results. ED course: will initiate transfer to [facility] as requested by family. 21:05 ED course: consult with DR Valdivia, hospitalist at [facility], will accept cp patient as transfer after discussion. 05/24 15:46 Order name: Blood Culture Adult (2) 05/24 15:46 Order name: CBC with Diff; Complete Time: 20:57 05/24 16:59 Interpretation: Normal except: WBC 14.50; RBC 3.51; HGB 10.7; HCT 32.4; MPV 6.7; HALEY% cp 94.5; LYM% 1.9; NEUT A 13.8; LYMA 0.3. 05/24 15:46 Order name: CMP; Complete Time: 17:29 05/24 17:29 Interpretation: Normal except: K 2.6; CL 112; CRE 0.65; ALT < 14; CA 7.2; TP 4.6; ALB cp 1.7; A/G 0.6. 05/24 15:46 Order name: Lactate w/ 2H reflex if indic.; Complete Time: 16:59 05/24 17:00 Interpretation: Reviewed. 05/24 15:46 Order name: Protime (+inr); Complete Time: 16:59 cp 05/24 17:01 Interpretation: Reviewed. 05/24 15:46 Order name: Ptt, Activated; Complete Time: 16:59 cp 05/24 17:01 Interpretation: Reviewed. 05/24 15:46 Order name: Troponin High Sensitivity; Complete Time: 17:29 cp 05/24 15:46 Order name: Lipase; Complete Time: 17:29 cp 05/24 15:54 Order name: CK; Complete Time: 17:29 cp 05/24 16:35 Order name: COVID-19 Ag + Flu A+B Ag; Complete Time: 17:29 EDMS 05/24 19:39 Order name: CBC Smear Scan; Complete Time: 20:57 EDMS 05/24 15:46 Order name: Chest Single View XRAY; Complete Time: 16:59 cp 05/24 17:00 Interpretation: Report review. cp 05/24 15:46 Order name: US Extremity Venous W Compression Ovi; Complete Time: 16:59 cp 05/24 17:00 Interpretation: Report reviewed. cp 05/24 15:54 Order name: Chest Abdomen Pelvis W Cont; Complete Time: 18:36 EDMS 05/24 15:54 Order name: Head C Spine Mpr Wo Con; Complete Time: 18:14 EDMS 05/24 15:46 Order name: EKG; Complete Time: 15:47 cp 05/24 15:46 Order name: Accucheck; Complete Time: 15:50 cp 05/24 15:46 Order name: Cardiac monitoring; Complete Time: 15:50 cp 05/24 15:46 Order name: EKG - Nurse/Tech; Complete Time: 16:51 cp 05/24 15:46 Order name: IV Saline Lock - Large Bore; Complete Time: 16:51 cp 05/24 15:46 Order name: Labs collected and sent; Complete Time: 16:51 cp 05/24 15:46 Order name: O2 Per Protocol; Complete Time: 15:50 cp 05/24 15:46 Order name: O2 Sat Monitoring; Complete Time: 15:50 cp 05/24 15:46 Order name: Vital Signs; Complete Time: 15:50 cp 05/24 16:30 Order name: Labs - recollect needed: green; Complete Time: 16:51 bc6 05/24 19:59 Order name: EKG - Nurse/Tech; Complete Time: 20:46 cp EC:33 Rate is 91 beats/min. Rhythm is irregular. QRS interval is normal. QT interval is cp normal. T waves are Inverted in lead aVR. Interpreted by me. Reviewed by me. 20:40 Rate is 100 beats/min. Rhythm is irregular. QRS interval is normal. QT interval is cp normal. Interpreted by me. Reviewed by me. Administered Medications: 16:22 Drug: NS 0.9% IV 1000 ml IV at 1000 ml once; to be given as a bolus over 60 minutes bp Route: IV; Rate: 1000 ml; Site: left forearm; 18:32 Drug: Potassium PO Effervescent Tablet 50 mEq PO once; dissolve in 4 ounces of water or bp juice Route: PO; 20:47 Follow up: Response: No adverse reaction al5 18:32 Drug: Potassium Chloride IV 20 mEq IV at calculated rate once; administer over 1-2 bp hours Route: IV; Rate: calculated rate; Site: left forearm; 20:47 Follow up: Response: No adverse reaction; IV Status: Completed infusion; IV Intake: al5 100ml 20:47 Drug: Piperacillin-Tazobactam IVPB 3.375 grams IVPB once over 60 mins; (mix in NS 100 al5 mL) Route: IVPB; Infused Over: 60 mins; Site: left forearm; 21:26 Follow up: Response: No adverse reaction; IV Status: Completed infusion; IV Intake: al5 100ml 21:26 Drug: vancoMYCIN IVPB 1 grams IVPB once over 2 hrs Route: IVPB; Infused Over: 2 hrs; al5 Site: left forearm; 22:30 Follow up: Response: No adverse reaction; IV Status: Infusion continued upon transfer al5 22:06 Drug: NS 0.9% IV 500 ml 500 ml IV at 75 ml/hr once; to be given as a bolus over 30 al5 minutes Volume: 500 ml; Route: IV; Rate: 75 ml/hr; Site: right forearm; 22:30 Follow up: Response: No adverse reaction; IV Status: Infusion continued upon transfer al5 22:06 Drug: Potassium Chloride IV 20 mEq IV at calculated rate once; administer over 1-2 al5 hours Route: IV; Rate: calculated rate; Site: right forearm; 22:30 Follow up: Response: No adverse reaction; IV Status: Infusion continued upon transfer al5 Disposition: 05/25 20:30 Co-signature as Attending Physician, Grayson Gallo MD I reviewed the patient's care rt provided by the Advanced Practice Provider and agree with the diagnosis and treatment plan. Disposition Summary: 05/24/24 18:54 Transfer Ordered Notes: Transfer Location: [facility] cp Reason: Higher level of care cp Condition: Stable cp Problem: new cp Symptoms: have improved cp Accepting Physician: DR Ambika Valdivia(05/24/24 23:04) al5 Diagnosis - Cellulitis of left lower limb cp - Rectal Wall Thickening with inflammation cp - Hypokalemia cp - Unspecified atrial fibrillation cp Forms: - Medication Reconciliation Form cp - SBAR form cp Signatures: Dispatcher [employer] EDMS Armand Felipe PA PA cp Brandon White RN RN bp Chucky Esparza RN RN ll1 Grayson Gallo MD MD rt Sera Saenz bc6 Gloria Moser RN RN al5 Corrections: (The following items were deleted from the chart) 05/24 15:47 15:47 BLOOD CULTURE*+BA.LAB.BRZ ordered. EDMS EDMS 15:47 15:47 CBC+H.LAB.BRZ ordered. EDMS EDMS 15:47 15:47 COMPREHENSIVE METABOLIC PANEL+C.LAB.BRZ ordered. EDMS EDMS 15:47 15:47 LACTATE+C.LAB.BRZ ordered. EDMS EDMS 15:47 15:47 PROTIME (+INR)+COAG.LAB.BRZ ordered. EDMS EDMS 15:47 15:47 PTT, ACTIVATED+COAG.LAB.BRZ ordered. EDMS EDMS 15:47 15:47 Urinalysis+U.LAB.BRZ ordered. EDMS EDMS 15:47 15:47 Troponin High Sensitivity+C.LAB.BRZ ordered. EDMS EDMS 15:47 15:47 LIPASE+C.LAB.BRZ ordered. EDMS EDMS 15:47 15:47 Urine Culture+BA.LAB.BRZ ordered. EDMS EDMS 15:47 15:47 Head C Spine CAP W Con+CT.RAD.BRZ ordered. EDMS EDMS 15:47 15:47 Extrem Venous W Compression Ovi+US.RAD.BRZ ordered. EDMS EDMS 15:54 15:54 CREATINE PHOSPHOKINASE+C.LAB.BRZ ordered. EDMS EDMS 16:35 15:47 Influenza Screen (A \T\ B)+BA.LAB.BRZ ordered. EDMS EDMS 16:35 15:47 SARS-COV-2 Antigen Rapid+I.LAB.BRZ ordered. EDMS EDMS 19:16 18:54 doctor cp cp 20:08 19:16 doctor cp cp : 20:08 doctor cp cp :04 21:46 DR Ambika Valdivia cp al5
[2024-05-24 19:39] LABS: Blood Morphology Comment NOT SEEN (NOT SEEN); Platelet Estimate ADEQ; White Blood Cell Scan OK (OK)
[2024-05-24] MEDS ORDERED: VANCOMYCIN 1 GM/VIAL ONE (20:28)
[2024-05-24] MEDS ORDERED: PIPERACIL/TAZO 3.375 GM VIAL IV ONE (20:29)
[2024-05-24] MEDS ORDERED: NA CHLORIDE 0.9% 100 ML ONE (20:29)
[2024-05-24] MEDS ORDERED: NA CHLORIDE 0.9% 500 ML ONE (21:59)
[2024-05-25 20:18] VITALS: TEMP 99.3
[2024-05-25 20:19] VITALS: BP 134/65; O2SAT 96
--- NOTE | 2024-05-28 12:14 | EKG ---
Test Date: 2024-05-24 Test Time: 20:35:56 Senior Network Architect: NATHANIEL MEASUREMENT RESULTS: Intervals: Rate: 100 WV: QRSD: 58 QT: 348 QTc: 448 [place]: P: [place]: QRS: 96 T: 81 INTERPRETIVE STATEMENTS: Atrial fibrillation Rightward axis Septal infarct, age undetermined Abnormal ECG Compared to ECG 04/23/2024 14:28:34 No significant changes Electronically Signed On 05-28-24 12:11:28 INSPECTOR CASING by Jace Santillan
--- NOTE | 2024-05-28 12:15 | EKG ---
Test Date: 2024-05-24 Test Time: 16:26:05 Dry Talc Racker: BP MEASUREMENT RESULTS: Intervals: Rate: 91 WI: QRSD: 70 QT: 382 QTc: 469 [place]: P: [place]: QRS: 88 T: 86 INTERPRETIVE STATEMENTS: Atrial fibrillation Septal infarct, age undetermined Abnormal ECG Compared to ECG 04/23/2024 14:28:34 Right-axis deviation no longer present Myocardial infarct finding still present Electronically Signed On 05-28-24 12:11:42 CORRECTIONAL COUNSELOR/CASE MANAGER by Jace Santillan
== END 2024-05-24 23:04 | disposition short-term general hospital (02) ==
LOC: ER 15:07
DX: L03.116 Cellulitis of left lower limb (principal); K62.89 Other specified diseases of anus and rectum; E87.6 Hypokalemia; I48.91 Unspecified atrial fibrillation; F17.210 Nicotine dependence, cigarettes, uncomplicated; Z11.52 Encounter for screening for COVID-19
CPT/HCPCS: 93005 ×2; 87040 ×2; 85025; 36415; 82550; 87205; 85610; 83605; 85730; 87077; 87186; 84484; 83690; 80053; 70450; 72125; 71260; 74177; 71045; 93970; 99285; 87428; Q9967; J3480 ×2; J2543; J7050 ×2; J7040; J7030